=== PATIENT | female | born 1935 | race Caucasian/White ===

== ENCOUNTER 2016-07-17 12:21 | Inpatient (IN) | payer MEDICARE, OTHER, MEDICAID ==
[2016-07-17] MEDS ORDERED: Sodium Chloride 0.9% 1,000 ML IV ONE (12:25)
[2016-07-17 12:34] VITALS: BP 86/61
[2016-07-17 12:36] LABS: BE(B) 12.4 mEq/L (-3.0-3.0); HCO3 34.3 mEq/L (20.0-26.0); pH 7.52 (7.35-7.45)
[2016-07-17 12:37] LABS: ABG SOURCE Arterial; ALLEN TEST YES; FIO2 21
--- NOTE | 2016-07-17 12:50 | ED Physician Chart ---
Chief Complaint/HPI - Patient Information Date Seen:: 07/17/16 Time Seen:: 12:35 Chief Complaint:: CHEST CONGESTION History of Present Illness:: THIS IS A CHRONICALLY ILL 81 YO FEMALE SENT FROM THE ALF FOR EVALUATION AND TREATMENT. SHE HAS BEEN HAVING TROUBLE WITH SOB, COUGHING, CHEST CONGESTION FOR SEVERAL DAYS. Allergies:: Allergies Allergy/AdvReac Type Severity Reaction Status Date / Time Penicillins [PCN] Allergy Verified 07/17/16 12:28 aspirin AdvReac Verified 07/17/16 12:28 aztreonam [From Azactam] AdvReac Verified 07/17/16 12:28 iodine AdvReac Verified 07/17/16 12:28 Vitals:: Vital Signs - 8 hr 07/17/16 12:34 BP 86/61 Historian:: Patient, EMS, Medical Records Review:: Nurse's Note Reviewed, Transfer documents Reviewed Review of Systems - Review of Systems General/Constitutional: No fever, No chills, No weight loss, No weakness, No diaphoresis, No edema, No loss of appetite Skin: No skin lesions, Rash, No bruising Head: No headache, No light-headedness Eyes: No loss of vision, No pain, No diplopia ENT: No earache, No nasal drainage, No sore throat, No tinnitus Neck: No neck pain, No swelling, No thyromegaly, No stiffness, No mass noted Cardio Vascular: No chest pain, No palpitations, No PND, No orthopnea, No edema Pulmonary: SOB, Cough, Sputum, No wheezing GI: No nausea, No vomiting, No diarrhea, No pain, No melena, No hematochezia, No constipation, No hematemesis G/U: No dysuria, No frequency, No hematuria Musculoskeletal: No bone or joint pain, No back pain, No muscle pain Endocrine: No polyuria, No polydipsia Psychiatric: No prior psych history, No depression, No anxiety, No suicidal ideation Hematopoietic: No bruising, No lymphadenopathy Allergic/Immuno: No urticaria, No angioedema Neurological: No syncope, No focal symptoms, No weakness, No paresthesia, No headache, No seizure, No dizziness, No confusion, No vertigo Past Medical History - Past Medical History Obtainable: Yes Past Medical History: CAD, CHF, Asthma/COPD, Thyroid disorder, Dementia, Other ( GALLSTONES, HIATAL HERNIA, MULTIPLE COMPRESSION FRACTURES) Family History: None Social History: Non Smoker, No Alcohol, No Drug Use, Care Facility Surgical History: None Psychiatricy History: Dementia Medication: Reviewed Family Medical History - Family Member Mother History Unknown: Yes Ethnicity: Non- Living Status: Physical Exam - Physical Examination General/Constitutional: Awake, Well-developed, well-nourished, Alert, No distress, GCS 15, Non-toxic appearing, Ambulatory Head: Atraumatic Eyes: Lids, conjuctiva normal, PERRL, EOMI Skin: Nl inspection, No skin lesions, No ecchymosis, Well hydrated, No lymphadenopathy Other Skin comments:: RASH ON ARMS AND LEGS ENMT: External ears, nose nl, Nasal exam nl, Lips, teeth, gums nl Neck: Nontender, Full ROM w/o pain, No JVD, No nuchal rigidity, No bruit, No mass, No stridor Respiratory: Nl effort/Exclusion Other Respiratory comments:: THERE ARE DECREASED BREATH SOUNDS BILATERAL AND THERE ARE RHONCHI HEARD WITH A DECREASE IN THE EXCURSION OF THE DIAPHRAMS. Cardio Vascular: RRR, No murmur, gallop, rubs, NL S1 S2 GI: No tenderness/rebounding/guarding, No organomegaly, Normal BS's, Nondistended, No mass/bruits, No McBurney tenderness Other GI comments:: THERE IS A VENTRAL HERNIA NOTED OF EXAMINATION. : No CVA tenderness Extremities: No tenderness or effusion, Full ROM, normal strength in all extremities, No edema, Normal digits & nails Other Extremities comments:: THERE IS MUSCLE WASTING OF ALL FOUR EXTREMITIES WITH DEGENERATIVE JOINT DISEASE. Neuro/Psych: Alert/oriented, DTR's symmetric, Normal sensory exam, Normal motor strength, Judgement/insight normal, Mood normal, Normal gait, No focal deficits Misc: normal gait, Normal back, No paraspinal tenderness Labs/Radiology/EKG Results - Lab Results Results: Laboratory Tests 07/17/16 12:18 Specimen Source Arterial Sample Site Right Radial pH 7.52 H pCO2 45.0 pO2 47.0 L* HCO3 34.3 H Base Excess 12.4 H O2 Saturation 87.0 L Von Test YES Vent Rate NA Inspired O2 21 Tidal Volume NA PEEP NA Pressure (ins/psv/peep) NA Critical Value E.GARCIA - Radiology Results Results: CHEST X-RAY = ENLARGED HEART, DECREASE LUNG VOLUMES. - EKG Interpretations EKG Time:: 12:37 Rhythm: SINUS Hardin: RIGHT Rate: 83 ED Septic Shock - . Is Septic Shock (SBP<90, OR Lactate>4 mmol\L) present?: No - <6hrs of presentation: Vital Signs: Vital Signs - 8 hr 07/17/16 12:34 BP 86/61 Reassessment (Disposition) - Reassessment Reassessment Condition:: Unchanged - Diagnosis Diagnosis:: CHF ELEVATED TROPONIN - Patient Disposition Discharge/Transfer:: Acute Care w/in this hosp Admitted to:: Telemetry
[2016-07-17 12:51] LABS: % BASOPHILS 0.1 % (0.0-2.0); % EOSINOPHILS 1.2 % (0.0-5.0); % LYMPHOCYTES 13.5 % (20.0-50.0); % MONOCYTES 6.1 % (2.0-10.0); % NEUTROPHILS 79.1 % (40.0-80.0); HEMATOCRIT 39.7 % (35.0-45.0); HEMOGLOBIN 13.2 gm/dL (11.7-16.1); MEAN CELL VOLUME 87.5 fl (81-100); MEAN CORPUSCULAR HGB CONC 33.2 pg (28.0-36.0); MEAN PLATELET VOLUME 6.6 fl; NEUTROPHILE ABSOLUTE 7.1 Th/cmm (1.8-8.0); PLATELET COUNT 202 Th/cmm (150-400); RED BLOOD COUNT 4.54 Mil/cmm (3.80-5.20); RED CELL DISTRIBUTION WIDTH 14.9 % (11.5-20.0); WHITE BLOOD COUNT 8.9 Th/cmm (4.8-10.8)
[2016-07-17 13:00] LABS: INR 1.07 (0.5-1.4); PROTHROMBIN TIME (TEST) 11.1 SECONDS (9.5-11.5)
[2016-07-17 13:06] LABS: ALB/GLOB RATIO 0.8 (1.0-1.8); ALKALINE PHOSPHATASE 55 U/L (34-104); ANION GAP 10.6 (7.0-16.0); BILIRUBIN,TOTAL 0.5 mg/dL (0.3-1.0); BUN - UREA NITROGEN 17 mg/dL (7-25); BUN/CREATININE RATIO 24.3; CALCIUM SERUM 9.3 mg/dL (8.6-10.3); CARBON DIOXIDE 30.7 mEq/L (21.0-31.0); CHLORIDE 101 mEq/L (98-107); CHOLESTEROL 129 mg/dL (<200); CREATININE - SERUM 0.7 mg/dL (0.6-1.2); GLUCOSE 145 mg/dL (70-105); POTASSIUM SERUM 3.3 mEq/L (3.5-5.1); SGOT 21 U/L (13-39); SGPT/ALT 9 U/L (7-52); SODIUM SERUM 139 mEq/L (136-145); TRIGLYCERIDES 78 mg/dL (<150)
--- NOTE | 2016-07-17 13:48 | Diagnostic Imaging Report ---
Portable chest x-ray HISTORY: Shortness of breath The heart is enlarged. Allowing for a poor inspiration, no acute focal pulmonary processes. No evidence of pleural fluid. IMPRESSION: 1. Allowing for a poor inspiration, no focal pulmonary processes 2. Cardiomegaly
--- NOTE | 2016-07-17 16:29 | Admit Criteria Form ---
Admit Criteria Forms - Admit Criteria Diagnosis: HEART FAILURE: COMMON COMPLICATIONS Clinical Indications for Inpatient Care (Place 'X' for any and all applicable criteria): Ongoing inpatient care may be indicated for heart failure with ANY ONE of the following (1)(2)(3)(4)(5): [ ]I. Ongoing need for care for primary condition requiring frequent therapy adjustments because of changes in cardiac function (eg, drug dosage changes for drugs that are renally metabolized) [ ]II. New-onset heart failure [ ]III. Heart failure with decreased urine output not responsive to attempts to optimize volume status [ ]IV. Acute cardiac ischemia causing or associated with failure [X]V. Complications of heart failure, including ANY ONE of the following: [ ]a) Pericardial effusion [ ]b) Symptomatic pleural effusion [X]c) O2 saturation <90% or PO2 < 60 mm Hg (8.0 kPa) on room air or require baseline supplemental O2 [ ]d) Tachypnea [X]e) Dyspnea [ ]f) Syncope [ ]g) Change in mental status [ ]h) Acute renal insufficiency that is severe (reduction of more than 50% in estimated glomerular filtration rate from baseline) or progressive reduction of more than 25% in estimated glomerular filtration rate from baseline, with creatinine continuing to rise) [ ]i) Hemodynamic instability [ ]j) Anasarca [ ]k) Clinically significant metabolic abnormalities due to heart failure (eg, new-onset metabolic acidosis) Extended stay beyond goal length of stay for primary condition may be needed until ALL of the following are present(1)(3): [ ]a) Stable and effective diuretic regimen established (or patient on stable dialysis regimen if in chronic renal failure) [ ]b) Breathing comfortably at rest [ ]c) Saturation of arterial oxygen greater than 90% or at acceptable baseline [ ]d) Pulmonary edema absent or improved [ ]e) Hemodynamic stability [ ]f) Volume status acceptable on oral medication [ ]g) Peripheral or sacral edema absent or improved [ ]h) Renal function stable and manageable at a lower level of care [ ]i) Complications (eg, pleural effusion) resolved or manageable at a lower level of care [ ]j) Patient or caregiver has received written discharge instructions or educational material addressing activity level, diet, discharge medications, follow-up appointment, weight monitoring, and what to do if symptoms worsen The original [employer] content created by Bob Eastman has been revised. The portions of the content which have been revised are identified through the use of italic text or in bold, and Bob Eastman has neither reviewed nor approved the modified material.All other unmodified content is copyright Bob Eastman. Please see references footnoted in the original Bob Eastman edition 2016 Admit Criteria Met?: Yes
[2016-07-17] MEDS ORDERED: D5-0.45NS 1,000 ML IV SCH (16:30)
[2016-07-17] MEDS: Albuterol Nebulizer 2.5mg/3mL IH SCH (19:06)
[2016-07-17] MEDS: Ipratropium Neb 0.5 mg/2.5 mL UD IH SCH (19:07)
[2016-07-17] MEDS ORDERED: Ipratropium Neb 0.5 mg/2.5 mL UD HHN PRN (20:04)
[2016-07-17] MEDS ORDERED: Budesonide 0.5 Mg/2 mL Ud HHN ONE (20:10)
[2016-07-17] MEDS: guaiFENesin 200 MG/10 ML UDC PO PRN (20:58)
[2016-07-17] MEDS: methylPREDNISolone SS 40 mg Vial IVP SCH (20:59)
[2016-07-17] MEDS: D5-0.45NS 1,000 ML IV SCH (21:21)
[2016-07-18 02:00] LABS: TROP I 0.14 ng/mL (0.01-0.05)
[2016-07-18] MEDS: methylPREDNISolone SS 40 mg Vial IVP SCH ×3 (05:11→21:30)
[2016-07-18] MEDS: Albuterol/Ipratropium Neb 3 ML AERS HHN PRN (05:27)
[2016-07-18] MEDS: Ipratropium Neb 0.5 mg/2.5 mL UD IH SCH ×5 (05:28→19:16)
[2016-07-18] MEDS: Albuterol Nebulizer 2.5mg/3mL IH SCH (07:25)
[2016-07-18] MEDS: Budesonide 0.5 Mg/2 mL Ud HHN SCH ×2 (07:28→19:16)
[2016-07-18] MEDS ORDERED: Potassium Chloride 20 mEq ER Tab PO ONE (07:39)
[2016-07-18] MEDS: Ferrous Sulfate 300 MG/5 ML UDC PO SCH ×4 (08:46→21:30)
[2016-07-18] MEDS: Levothyroxine 0.05 Mg Tab PO SCH (08:47)
--- NOTE | 2016-07-18 08:56 | Diagnostic Imaging Report ---
Portable chest x-ray HISTORY: Shortness of breath Compared with prior exam taken earlier in the day (1257 hours), there is a poor inspiration. The heart is enlarged. There is accentuation of the interstitial lung markings. A degree of congestive heart failure cannot be excluded. Density noted in the left retrocardiac region suggesting a probable hiatal hernia. IMPRESSION: 1. Cardiomegaly. Mild degree of congestive heart failure cannot be excluded. Clinical correlation is needed. 2. Retrocardiac density suggesting a hiatal hernia. If necessary, a CT scan would confirm.
--- NOTE | 2016-07-18 09:08 | History & Physical ---
CHIEF COMPLAINT: [facility] is a [facility] resident was sent to the Emergency Room due to chest congestion and coughing for 3 days. HISTORY OF PRESENT ILLNESS: This is an 81-year-old female from a [facility] who was sent in to the Emergency Room for evaluation due to coughing and chest congestion for 3 days. REVIEW OF SYSTEMS: GENERAL: No weight loss. No fever. No weakness. HEAD: Denies any headache. EYES: Denies any eye pain. EARS: Denies any earache. NOSE: Denies any nasal drainage. NECK: Denies any neck pain or swelling. CARDIOVASCULAR: No chest pain, no palpitation. PULMONARY: Positive with cough, shortness of breath and wheezing. GASTROINTESTINAL: No constipation. Denies diarrhea. Denies any abdominal pain. GENITOURINARY: Denies dysuria. MUSCULOSKELETAL: Denies any joint pain or muscle pain. PAST MEDICAL HISTORY: Includes CHF, asthma, hypothyroidism, dementia, coronary artery disease. FAMILY HISTORY: Unremarkable. SOCIAL HISTORY: The patient [facility] prior to arrival to Emergency Room. PAST SURGICAL HISTORY: Unremarkable. PHYSICAL EXAMINATION: GENERAL: Awake, well developed, well nourished female patient, alert, in no distress. HEENT: Head is atraumatic, normocephalic. NOSE: Bilateral pupils equally round and reactive to light and accommodation. SKIN: Fragile. NECK: Supple. No JVD. CARDIOVASCULAR: S1 and S2 heard without murmur. LUNGS: Positive cough and bilateral ____ notable wheezing. GASTROINTESTINAL: Abdomen is soft and nontender without guarding. MUSCULOSKELETAL: No edema. No weakness noted. ASSESSMENT: 1. Hypoxemia. 2. Congestive heart failure. 3. Elevated troponin. 4. Dementia. 5. Hypertension. 6. Osteoarthritis. 7. Chronic obstructive pulmonary disease. PLAN: We will admit the patient to telemetry unit. We will check the patient's troponin level every 8 hours and also we will repeat a chest x-ray in the morning and also we will give the patient some Solu-Medrol and breathing treatment, some bronchodilators and we will have the family engagement specialist and size changer to follow up with the patient. JOB# [id number]
[2016-07-18 09:55] LABS: % BASOPHILS 3.6 % (0.0-2.0); % EOSINOPHILS 0.1 % (0.0-5.0); % MONOCYTES 1.6 % (2.0-10.0); % NEUTROPHILS 85.7 % (40.0-80.0); HEMOGLOBIN 12.8 gm/dL (11.7-16.1); MEAN CELL VOLUME 86.8 fl (81-100); MEAN CORPUSCULAR HEMOGLOBIN 29.3 pg (27.0-31.0); MEAN CORPUSCULAR HGB CONC 33.8 pg (28.0-36.0); MEAN PLATELET VOLUME 7.4 fl; NEUTROPHILE ABSOLUTE 8.9 Th/cmm (1.8-8.0); PLATELET COUNT 178 Th/cmm (150-400); RED BLOOD COUNT 4.37 Mil/cmm (3.80-5.20); RED CELL DISTRIBUTION WIDTH 14.5 % (11.5-20.0); WHITE BLOOD COUNT 10.4 Th/cmm (4.8-10.8)
[2016-07-18 10:32] LABS: ALB/GLOB RATIO 0.8 (1.0-1.8); ALKALINE PHOSPHATASE 57 U/L (34-104); ANION GAP 13.3 (7.0-16.0); BILIRUBIN,TOTAL 0.5 mg/dL (0.3-1.0); BUN - UREA NITROGEN 17 mg/dL (7-25); BUN/CREATININE RATIO 28.3; CALCIUM SERUM 9.4 mg/dL (8.6-10.3); CARBON DIOXIDE 25.5 mEq/L (21.0-31.0); CHLORIDE 104 mEq/L (98-107); CREATININE - SERUM 0.6 mg/dL (0.6-1.2); GLUCOSE 292 mg/dL (70-105); MAGNESIUM 2.1 mg/dL (1.9-2.7); SGOT 19 U/L (13-39); SGPT/ALT 9 U/L (7-52); SODIUM SERUM 140 mEq/L (136-145)
--- NOTE | 2016-07-18 10:34 | Diagnostic Imaging Report ---
Portable chest x-ray HISTORY: Shortness of breath Compared with prior exam of July 17, 2016, there is a very poor inspiration. The heart appears enlarged. A large retrocardiac air density is seen consistent with a large hiatal hernia. A poor inspiration is results in accentuation of the interstitial lung markings. Allowing for this factor, no definite focal processes are seen. IMPRESSION: 1. Very poor inspiration resulting in accentuation of the interstitial lung markings. Allowing for this factor, no definite focal processes are seen 2. Cardiomegaly 3. Large retrocardiac air density consistent with a large hiatal hernia.
[2016-07-18 10:43] LABS: POTASSIUM SERUM 2.8 mEq/L (3.5-5.1)
[2016-07-18] MEDS: Albuterol Nebulizer 2.5mg/3mL HHN SCH ×3 (10:54→19:16)
[2016-07-18] MEDS: KCL 20mEq/100mL Premix 20 MEQ/100 ML PIGGYBACK IV SCH ×2 (14:04→16:48)
[2016-07-18] MEDS: D5-0.45NS 1,000 ML IV SCH (23:13)
[2016-07-19] MEDS: methylPREDNISolone SS 40 mg Vial IVP SCH ×3 (05:48→21:43)
[2016-07-19] MEDS: Albuterol Nebulizer 2.5mg/3mL HHN SCH ×4 (07:17→19:05)
[2016-07-19] MEDS: Ipratropium Neb 0.5 mg/2.5 mL UD IH SCH ×4 (07:17→19:05)
[2016-07-19] MEDS: Budesonide 0.5 Mg/2 mL Ud HHN SCH ×2 (07:18→19:05)
--- NOTE | 2016-07-19 08:51 | Consultation ---
REFERRING PHYSICIAN: Dr. Moises Ryder. Thank you very much Dr. Ryder for this consultation. HISTORY OF PRESENT ILLNESS: This is an 81-year-old female who was admitted with respiratory distress, shortness of breath and cough and was diagnosed with possible pneumonia, admitted for further treatment and management. The patient apparently was getting ambulated by PT and started feeling dizzy, was found to have rounds of VTAC, transferred to ICU for further evaluation. The patient feels better she said. She denies any chest pain, still having some cough and congestion. The patient had recent CVA she said about 2 months ago or less, right-sided weakness. SOCIAL HISTORY: Denies smoking, drinking or drug use. REVIEW OF SYSTEMS: GENERAL: Some weakness and fatigue. CARDIOVASCULAR: No chest pain and some palpitation earlier. GASTROINTESTINAL: No nausea or vomiting. PHYSICAL EXAMINATION: GENERAL: Awake and alert, not in acute distress. VITAL SIGNS: Temperature 97.8, pulse 96, respirations 21, blood pressure 98/54 and saturation 96%. HEENT: Head atraumatic and normocephalic. Eyes: Pupils reactive to light and accommodation. Ears, nose and throat normal. NECK: Supple. No JVD. CHEST: There is rhonchi and rales in bases. HEART: Regular rate and rhythm. ABDOMEN: Soft. EXTREMITIES: No edema. LABORATORY DATA: WBC is 10.4, hemoglobin is 12.8, hematocrit is 38.0 and platelets 178. Sodium is 140, potassium 2.8, BUN is 17, creatinine 0.6 and troponin is 0.14, down to 0.08. CHEST X-RAY: Cardiomegaly with some pulmonary congestion, possible infiltrates to the right lower lobe. IMPRESSION: 1. This is an 81-year-old female with possibly pneumonia, right lower lobe. 2. Some underlying congestive heart failure ____. 3. Coronary artery disease with some rounds of ventricular tachycardia. 4. Recent cerebrovascular accident. PLAN: 1. IV antibiotics. 2. Nebulizer treatment. 3. Pulmonary toilet. 4. Cardiac evaluation and I will follow up the patient with you. Thank you very much for this consultation. JOB# [id number]
[2016-07-19] MEDS: Levothyroxine 0.05 Mg Tab PO SCH (09:13)
[2016-07-19] MEDS: Ferrous Sulfate 300 MG/5 ML UDC PO SCH ×3 (09:14→21:24)
--- NOTE | 2016-07-19 09:19 | Diagnostic Imaging Report ---
Portable chest x-ray HISTORY: Shortness of breath The heart is enlarged. There is a poor inspiration. The does appear to be degree of pulmonary vascular redistribution consistent with marginal cardiac decompensation. No margarette pulmonary edema. There is a large retrocardiac air density consistent with a large hiatal hernia. IMPRESSION: 1. Little change from July 18, 2016. Persistent cardiomegaly with suggestion of a marginal degree of cardiac decompensation without margarette pulmonary edema. 2. Findings consistent with a large retrocardiac hiatal hernia
[2016-07-19 09:41] LABS: HEMATOCRIT 39.2 % (35.0-45.0); MEAN CELL VOLUME 85.8 fl (81-100); MEAN CORPUSCULAR HEMOGLOBIN 28.4 pg (27.0-31.0); MEAN CORPUSCULAR HGB CONC 33.1 pg (28.0-36.0); MEAN PLATELET VOLUME 6.6 fl; PLATELET COUNT 184 Th/cmm (150-400); RED BLOOD COUNT 4.56 Mil/cmm (3.80-5.20); RED CELL DISTRIBUTION WIDTH 14.3 % (11.5-20.0)
[2016-07-19 09:43] LABS: WHITE BLOOD COUNT 12.1 Th/cmm (4.8-10.8)
[2016-07-19] MEDS ORDERED: Diltiazem 5 mg/mL 5mL Vial IVP STA (10:07)
[2016-07-19] MEDS ORDERED: KCL 20mEq/100mL Premix 20 MEQ/100 ML PIGGYBACK IV ONE (10:15)
[2016-07-19 10:27] LABS: ANION GAP 5.8 (7.0-16.0); BUN - UREA NITROGEN 15 mg/dL (7-25); CALCIUM SERUM 9.7 mg/dL (8.6-10.3); CARBON DIOXIDE 29.9 mEq/L (21.0-31.0); CHLORIDE 106 mEq/L (98-107); CREATININE - SERUM 0.5 mg/dL (0.6-1.2); GLUCOSE 125 mg/dL (70-105); POTASSIUM SERUM 3.7 mEq/L (3.5-5.1); SODIUM SERUM 138 mEq/L (136-145)
[2016-07-19 10:28] LABS: BAND NEUTROPHILE 1 % (0-10); NEUTROPHILS 91 % (40-80); PLATELET ESTIMATE ADEQUATE (NORMAL); PLATELET MORPHOLOGY NORMAL (NORMAL); TOTAL CELLS COUNTED 99
[2016-07-19] MEDS: KCL 20mEq/100mL Premix 20 MEQ/100 ML PIGGYBACK IV SCH ×2 (11:29→13:40)
[2016-07-19] MEDS ORDERED: Diltiazem 5 mg/mL 5mL Vial IVP PRN (14:06)
--- NOTE | 2016-07-19 17:06 | Cardiology ---
M-MODE ECHOCARDIOGRAM: Mitral valve, anterior leaflets of mitral valve shows normal excursion, EF velocity. Posterior leaflet of mitral valve shows normal excursion. Left ventricular posterior wall shows increased thickness, normal excursion. Interventricular septum shows increased thickness, normal excursion, hypertrophy of the left ventricle, ejection fraction 70%, left atrium enlarged. Aortic root shows normal dimension, normal excursion of aortic leaflets. CONCLUSION: Hypertrophy of the left ventricle, left atrial enlargement, ejection fraction 70%. 2D ECHO: Long axis view showed normal sized left ventricle with hypertrophy of the left ventricle. Left atrium enlarged. Aortic root shows normal dimension, normal excursion of aortic leaflets. Short axis view of mitral valve normal. Short axis view of aortic valve normal. Apical four chamber view showed normal sized left ventricle with hypertrophy of the left ventricle. Left atrium enlarged. Right ventricular cavity, right atrium normal, no pericardial effusion. CONCLUSION: Hypertrophy of the left ventricle, left atrial enlargement, ejection fraction 70%. Doppler study shows mild mitral regurgitation, tricuspid regurgitation, aortic regurgitation. Right ventricular systolic pressure 45 mmHg with mild pulmonary hypertension. CONCLUSION: Hypertrophy of the left ventricle. Left atrial enlargement, mild pulmonary hypertension, ejection fraction 70%. There is mild mitral regurgitation, tricuspid regurgitation, aortic regurgitation. [facility]# [id number]
[2016-07-19] MEDS: guaiFENesin 200 MG/10 ML UDC PO PRN (22:47)
--- NOTE | 2016-07-19 22:52 | Consultation ---
The patient of Dr. Ryder. HISTORY AND PHYSICAL: This 81-year-old female patient who was brought to the Emergency Room complaining of shortness of breath, cough, ____ expectoration, fever, and chills. The patient was found to have acute exacerbation of COPD and pneumonia, and the patient is admitted. During the hospital stay, the patient developed nonsustained ventricular tachycardia and the patient was transferred to ICU. The patient also has slightly elevated troponin level. PAST MEDICAL HISTORY: The patient has a history of dementia, COPD, congestive heart failure, diastolic dysfunction, hypothyroid, dementia, osteoarthritis, osteoporosis. FAMILY HISTORY: Unremarkable. SOCIAL HISTORY: No history of smoking, alcohol abuse. ALLERGIES: No known allergies. PHYSICAL EXAMINATION: VITAL SIGNS: Blood pressure 130/80, pulse 88, respirations 28. HEAD: Normocephalic. No lumps or bumps. EYES: Pupils are equal, reactive to light. Fundi show AV nicking, sclerae white, conjunctivae pink. NECK: Carotid 2+. Normal upstroke. JVD 10 cm above the sternal angle. Thyroid not palpable. Lymph node is not palpable. CHEST: Shows increased AP diameter. No kyphosis, scoliosis. LUNGS: Bilateral rales. Decreased breath sounds in both the bases. HEART: PMI sixth intercostal space with lateral to midclavicular line. S1, S2, S3, S4, systolic murmur, grade 2/6, lower left sternal border without radiation. ABDOMEN: Soft. Liver, spleen not palpable. No organomegaly. Bowel sounds are active. NEUROLOGIC: Unremarkable. EXTREMITIES: Peripheral pulses 1+, pedal edema 1+. CLINICAL IMPRESSION: Nonsustained ventricular tachycardia, congestive heart failure, diastolic dysfunction, non-ST elevation myocardial infarction, chronic obstructive pulmonary disease, acute respiratory failure, pneumonia, hypothyroid, dementia, osteoarthritis, osteoporosis, hypokalemia. PLAN: The patient to have an echocardiogram, start the patient on amiodarone, potassium supplement, and get serum magnesium level. The patient's condition was discussed with daughter at bedside. JOB# [id number]
[2016-07-20] MEDS: methylPREDNISolone SS 40 mg Vial IVP SCH ×2 (05:00→13:14)
[2016-07-20] MEDS: Albuterol/Ipratropium Neb 3 ML AERS HHN PRN (06:48)
[2016-07-20] MEDS: Budesonide 0.5 Mg/2 mL Ud HHN SCH ×2 (06:49→19:39)
[2016-07-20] MEDS ORDERED: Fleet Enema 135 mL RC PRN (06:59)
[2016-07-20 08:28] LABS: HEMOGLOBIN 13.2 gm/dL (11.7-16.1); MEAN CORPUSCULAR HEMOGLOBIN 30.1 pg (27.0-31.0); MEAN CORPUSCULAR HGB CONC 34.7 pg (28.0-36.0); MEAN PLATELET VOLUME 6.6 fl; PLATELET COUNT 203 Th/cmm (150-400); RED BLOOD COUNT 4.36 Mil/cmm (3.80-5.20); RED CELL DISTRIBUTION WIDTH 14.6 % (11.5-20.0)
[2016-07-20 08:33] LABS: WHITE BLOOD COUNT 9.4 Th/cmm (4.8-10.8)
[2016-07-20 08:49] LABS: ALB/GLOB RATIO 0.8 (1.0-1.8); ALKALINE PHOSPHATASE 48 U/L (34-104); ANION GAP 9.6 (7.0-16.0); BILIRUBIN,TOTAL 0.5 mg/dL (0.3-1.0); BUN - UREA NITROGEN 14 mg/dL (7-25); CALCIUM SERUM 9.4 mg/dL (8.6-10.3); CARBON DIOXIDE 27.1 mEq/L (21.0-31.0); CHLORIDE 105 mEq/L (98-107); CREATININE - SERUM 0.5 mg/dL (0.6-1.2); GLUCOSE 158 mg/dL (70-105); POTASSIUM SERUM 3.7 mEq/L (3.5-5.1); SGOT 20 U/L (13-39); SGPT/ALT 9 U/L (7-52); SODIUM SERUM 138 mEq/L (136-145)
[2016-07-20] MEDS: Lactulose 10 Gm/15 mL 30mL UDC PO SCH (09:10)
[2016-07-20 09:24] LABS: BAND NEUTROPHILE 2 % (0-10); NEUTROPHILS 91 % (40-80); PLATELET ESTIMATE ADEQUATE (NORMAL); PLATELET MORPHOLOGY NORMAL (NORMAL); TOTAL CELLS COUNTED 100
[2016-07-20] MEDS: Ferrous Sulfate 300 MG/5 ML UDC PO SCH ×2 (09:47→13:15)
[2016-07-20] MEDS: Levothyroxine 0.05 Mg Tab PO SCH (09:52)
--- NOTE | 2016-07-20 10:06 | Diagnostic Imaging Report ---
CHEST X-RAY: AP view INDICATION: CHF COMPARISON: Chest x-ray 07/19/2016 FINDINGS: A large retrocardiac hiatal hernia is noted. No focal consolidation or evidence of margarette CHF. A skinfold is seen along the left hemithorax. Cardiomegaly is noted. Note the patient is rotated. Distended loops of bowel are seen along the upper abdomen. IMPRESSION: Large retrocardiac hiatal hernia. If indicated, CT would provide additional detail and assessment. No radiographic evidence of margarette CHF. No focal consolidation identified. Cardiomegaly. Distended loops of bowel along the upper abdomen.
--- NOTE | 2016-07-20 11:05 | Diagnostic Imaging Report ---
KUB History: Abdominal distention Comparison: None Findings: There is massive generalized distention of bowel loops. There is significant stool seen throughout the colon greatest on the right side. Nonspecific 1 similar metallic density seen projecting along the right hemipelvis. Bilateral hip arthroplasties are noted. Advanced degenerative changes of the spine are noted. IMPRESSION: Massive generalized distended loops of bowel which may be due to generalized distal obstructive process or significant stool throughout the colon which is seen primarily on the right side. Clinical correlation and follow-up is recommended.
[2016-07-20] MEDS: Albuterol Nebulizer 2.5mg/3mL HHN SCH ×4 (11:55→19:39)
--- NOTE | 2016-07-20 15:21 | Internal Medicine Prog Note ---
Internal Medicine Subjective - Subjective Service Date: 07/20/16 Patient seen and examined:: without staff Patient is:: awake, verbal Patient Complaints of:: other (no v/d) Per staff patient is:: no episodes of fall, eating well Internal Medicine Objective - Results Result Diagrams: 07/20/16 08:15 07/20/16 08:15 Recent Labs: Laboratory Last Values WBC 9.4 Th/cmm (4.8-10.8) D 07/20/16 08:15 RBC 4.36 Mil/cmm (3.80-5.20) 07/20/16 08:15 Hgb 13.2 gm/dL (11.7-16.1) 07/20/16 08:15 Hct 38.0 % (35.0-45.0) 07/20/16 08:15 MCV 87.0 fl (81-100) 07/20/16 08:15 MCH 30.1 pg (27.0-31.0) 07/20/16 08:15 MCHC Differential 34.7 pg (28.0-36.0) 07/20/16 08:15 RDW 14.6 % (11.5-20.0) 07/20/16 08:15 Plt Count 203 Th/cmm (150-400) 07/20/16 08:15 MPV 6.6 fl 07/20/16 08:15 Neutrophils % 85.7 % (40.0-80.0) H 07/18/16 09:25 Band Neutrophils % 2 % (0-10) 07/20/16 08:15 Lymphocytes % 9.0 % (20.0-50.0) L 07/18/16 09:25 Monocytes % 1.6 % (2.0-10.0) L 07/18/16 09:25 Eosinophils % 0.1 % (0.0-5.0) 07/18/16 09:25 Basophils % 3.6 % (0.0-2.0) H 07/18/16 09:25 Neutrophils (Manual) 91 % (40-80) H 07/20/16 08:15 Lymphocytes 6 % (20-50) L 07/20/16 08:15 Monocytes 1 % (2-10) L 07/20/16 08:15 Platelet Estimate ADEQUATE (NORMAL) 07/20/16 08:15 Platelet Morphology NORMAL (NORMAL) 07/20/16 08:15 RBC Morph Micro Appear NORMAL (NORMAL) 07/20/16 08:15 PT 11.1 SECONDS (9.5-11.5) 07/17/16 12:42 INR 1.07 (0.5-1.4) 07/17/16 12:42 PTT (Actin FS) 31.0 SECONDS (26.0-38.0) 07/17/16 12:42 Specimen Source Arterial 07/17/16 12:18 Sample Site Right Radial 07/17/16 12:18 pH 7.52 (7.35-7.45) H 07/17/16 12:18 pCO2 45.0 mmHg (35.0-45.0) 07/17/16 12:18 pO2 47.0 mmHg (80.0-100.0) L* 07/17/16 12:18 HCO3 34.3 mEq/L (20.0-26.0) H 07/17/16 12:18 Base Excess 12.4 mEq/L (-3.0-3.0) H 07/17/16 12:18 O2 Saturation 87.0 % (92.0-100.0) L 07/17/16 12:18 Von Test YES 07/17/16 12:18 Vent Rate NA 07/17/16 12:18 Inspired O2 21 07/17/16 12:18 Tidal Volume NA 07/17/16 12:18 PEEP NA 07/17/16 12:18 Pressure (ins/psv/peep) NA 07/17/16 12:18 Critical Value E.GARCIA 07/17/16 12:18 Sodium 138 mEq/L (136-145) 07/20/16 08:15 Potassium 3.7 mEq/L (3.5-5.1) 07/20/16 08:15 Chloride 105 mEq/L (98-107) 07/20/16 08:15 Carbon Dioxide 27.1 mEq/L (21.0-31.0) 07/20/16 08:15 Anion Gap 9.6 (7.0-16.0) 07/20/16 08:15 BUN 14 mg/dL (7-25) 07/20/16 08:15 Creatinine 0.5 mg/dL (0.6-1.2) L 07/20/16 08:15 Est GFR ( Amer) TNP 07/20/16 08:15 Est GFR (Non-Af Amer) TNP 07/20/16 08:15 BUN/Creatinine Ratio 28.0 07/20/16 08:15 Glucose 158 mg/dL (70-105) H 07/20/16 08:15 Hemoglobin A1c % 5.1 % (4.0-6.0) 07/18/16 01:22 Calcium 9.4 mg/dL (8.6-10.3) 07/20/16 08:15 Magnesium 2.1 mg/dL (1.9-2.7) 07/18/16 09:25 Total Bilirubin 0.5 mg/dL (0.3-1.0) 07/20/16 08:15 AST 20 U/L (13-39) 07/20/16 08:15 ALT 9 U/L (7-52) 07/20/16 08:15 Alkaline Phosphatase 48 U/L (34-104) 07/20/16 08:15 Ammonia 49 umol/L (16-53) 07/18/16 09:25 Troponin I 0.08 ng/mL (0.01-0.05) H* D 07/18/16 09:25 B-Natriuretic Peptide 695.0 pg/mL (5.0-100.0) H 07/19/16 08:27 Total Protein 6.8 gm/dL (6.0-8.3) 07/20/16 08:15 Albumin 3.0 gm/dL (3.7-5.3) L 07/20/16 08:15 Globulin 3.8 gm/dL 07/20/16 08:15 Albumin/Globulin Ratio 0.8 (1.0-1.8) L 07/20/16 08:15 Triglycerides 78 mg/dL (<150) 07/17/16 12:42 Cholesterol 129 mg/dL (<200) 07/17/16 12:42 LDL Cholesterol Direct 81 mg/dL (75-193) 07/17/16 12:42 HDL Cholesterol 39 mg/dL (23-92) 07/17/16 12:42 TSH 2.99 uIU/ml (0.34-5.60) 07/17/16 12:42 RPR NONREACTIVE (NONREACTIVE) 07/17/16 12:42 - Physical Exam Vitals and I&O: Vital Signs Temp 98.0 F 07/20/16 12:00 Pulse 122 07/20/16 14:00 Resp 20 07/20/16 14:00 BP 126/82 07/20/16 14:00 Pulse Ox 96 07/20/16 14:00 Intake & Output 07/19/16 07/20/16 07/20/16 18:59 06:59 18:59 Intake Total 350 50 390 Balance 350 50 390 Intake: Intake, IV Amount 50 Cefepime 1 gm In Dextrose 50 5% 50 ml @ 100 mls/hr IV Q12H [facility] Rx#:[id number] Oral 350 390 Other: # Voids 3 Active Medications: Current Medications Acetaminophen (Tylenol) 650 mg PO Q4HR PRN PRN Reason: Pain or Fever >101 Stop: 09/15/16 16:17 Albuterol Sulfate (Albuterol 2.5mg/3ml Neb Ud) 2.5 mg HHN QIDRT [facility] Stop: 09/15/16 16:59 Last Admin: 07/20/16 11:55 Dose: 2.5 mg Albuterol/Ipratropium (Duoneb Neb) 3 ml HHN Q2H PRN PRN Reason: Wheezing Stop: 09/15/16 20:49 Last Admin: 07/20/16 06:48 Dose: 3 ml Amiodarone HCl (Cordarone) 200 mg PO DAILY [facility] Stop: 09/17/16 08:59 Last Admin: 07/20/16 09:46 Dose: 200 mg Budesonide (Pulmicort) 0.5 mg HHN BIDRT [facility] Stop: 09/16/16 06:59 Last Admin: 07/20/16 06:49 Dose: 0.5 mg Diltiazem HCl (Cardizem) 20 mg IVP Q4H PRN PRN Reason: HR Greater than 130 per min Stop: 09/17/16 14:05 Last Admin: 07/20/16 02:27 Dose: 20 mg Famotidine (Pepcid) 20 mg PO DAILY [facility] Stop: 09/16/16 08:59 Last Admin: 07/20/16 09:45 Dose: 20 mg Ferrous Sulfate (Iron) 220 mg PO TID [facility] Stop: 09/15/16 20:59 Last Admin: 07/20/16 13:15 Dose: 220 mg Folic Acid (Folate) 1 mg PO DAILY [facility] Stop: 09/16/16 08:59 Last Admin: 07/20/16 09:52 Dose: 1 mg Gabapentin (Neurontin) 300 mg PO BID [facility] Stop: 09/15/16 16:59 Last Admin: 07/20/16 09:45 Dose: 300 mg Guaifenesin (Robitussin) 200 mg PO Q4HR PRN PRN Reason: Cough or Congestion Stop: 09/15/16 16:17 Last Admin: 07/19/16 22:47 Dose: 200 mg Heparin Sodium (Porcine) (Heparin) 5,000 units SUBQ Q12HR [facility] Stop: 09/15/16 20:59 Last Admin: 07/20/16 09:47 Dose: Not Given Cefepime HCl 1 gm/ Dextrose 50 mls @ 100 mls/hr IV Q12H [facility] Stop: 09/15/16 16:29 Last Infusion: 07/20/16 05:30 Dose: Infused Dextrose/Sodium Chloride (D5-0.45ns) 1,000 mls @ 60 mls/hr IV .[id number] [facility] Stop: 09/15/16 16:29 Last Admin: 07/18/16 23:13 Dose: 60 mls/hr Ipratropium [place] (Atrovent Neb 0.5mg/2.5ml) 0.5 mg IH QID [facility] Stop: 09/15/16 16:59 Last Admin: 07/19/16 19:05 Dose: 0.5 mg Lactulose (Cephulac) 20 gm PO DAILY [facility] Stop: 09/18/16 08:59 Last Admin: 07/20/16 09:10 Dose: 20 gm Levetiracetam (Keppra) 1,000 mg PO Q12H [facility] Stop: 09/15/16 16:14 Last Admin: 07/19/16 17:36 Dose: 1,000 mg Levothyroxine Sodium (Synthroid) 0.05 mg PO QAM [facility] Stop: 09/16/16 08:59 Last Admin: 07/20/16 09:52 Dose: 0.05 mg Methylprednisolone Sodium Succinate (Solu-Medrol) 80 mg IVP Q8HR [facility] Stop: 09/18/16 20:59 Ondansetron HCl (Zofran) 4 mg IV Q8H PRN PRN Reason: Nausea / Vomiting Stop: 09/15/16 16:17 Sodium Phosphate (Fleet Enema) 135 ml RC DAILY PRN PRN Reason: Constipation Stop: 09/18/16 06:58 Thiamine HCl (Vitamin B1) 100 mg PO DAILY [facility] Stop: 09/16/16 08:59 Last Admin: 07/20/16 09:46 Dose: 100 mg Zolpidem Tartrate (Ambien) 10 mg PO HS PRN PRN Reason: Insomnia Stop: 09/15/16 16:17 Last Admin: 07/20/16 01:10 Dose: 10 mg General: other (awake, alert, didnt sleep last nite) HEENT: NC/AT, PERRLA, EOMI, anicteric sclerae, throat clear Neck: Supple, No JVD, +2 carotid pulse wo bruit Lungs: CTAB Cardiovascular: RRR, Normal S1, Normal S2, tachy (on and off tachy , AFIB) Abdomen: soft non-tender Extremities: other (no clubbing, no edema, no cyanosis) Internal Medicine Assmt/Plan - Assessment Assessment: NSTEMI HYPOXEMIOA CHF ELEVATED TROPONIN DEMENTIA HTN OSTEOARTHRITIS - Plan Plan: CPM RESTORIL 30 FOR SLEEP AT BED TIME
[2016-07-20] MEDS ORDERED: Lactulose 10 Gm/15 mL 30mL UDC PO ONE (18:24)
[2016-07-20] MEDS ORDERED: Diltiazem 5 mg/mL 25mL Vial IV ONE (18:50)
[2016-07-20] MEDS: Ipratropium Neb 0.5 mg/2.5 mL UD IH SCH (19:38)
--- NOTE | 2016-07-20 22:59 | Consultation ---
IDENTIFYING INFORMATION: The patient is an 81-year-old female. REASON FOR CONSULTATION AND HISTORY OF PRESENT ILLNESS: The patient has been anxious. The patient reports that she cannot sleep, she cannot eat, she had a lot of anxiety ____ started having palpitation. The patient, otherwise, report that she had minimized her depression. She reports only anxiety. She denies any intent to harm herself or anybody. She denies any auditory or visual hallucination or paranoia. PAST PSYCHIATRIC HISTORY: The patient denies prior psychiatric treatment, never tried to harm herself, never had been on any psychotropic medication. MEDICAL HISTORY: Deferred to the medical ____. The patient has exacerbated COPD, she is currently in ICU. FAMILY AND SOCIAL HISTORY: The patient reports she is . She had 2 children, a boy and a girl. She lives with her son in [place]____. The patient reports no family psychiatric disorder, she has high school education. She is from [facility]. Denies substance abuse problem. Denies family history of psychotic disorder, suicide or substance abuse. MENTAL STATUS EXAMINATION: The patient was alert. She was cooperative. She has hard time with her breathing and speech, she knew this is 2016. She was not sure of the exact date. She knew her birthday. She has fair eye contact. She was coherent. Her long-term memory is intact, short-term memory is intact, not sure of the date or ages of her children or how long she has been . No suicidal ideation, no homicidal ideation. No paranoia. Her insight and judgment seems to be fair. IMPRESSION: AXIS I: Generalized anxiety disorder and dementia. MEDICAL DIAGNOSES: Deferred to the medical doctor. I would recommend to use Ativan as needed, start the patient on Remeron 7.5 mg at bedtime. I will defer to the medical doctor to initiate those medication as she feel comfortable considering her medical condition. Thank you very much for allowing me to participate in the care of this most interesting lady. JOB# [id number]
[2016-07-21 06:19] LABS: FOLIC ACID >20.0 ng/mL (>3.0)
[2016-07-21] MEDS: D5-0.45NS 1,000 ML IV SCH ×3 (07:00→23:38)
[2016-07-21] MEDS: Ipratropium Neb 0.5 mg/2.5 mL UD IH SCH ×4 (08:10→19:06)
[2016-07-21] MEDS: Albuterol Nebulizer 2.5mg/3mL HHN SCH ×4 (08:10→19:06)
[2016-07-21] MEDS: Budesonide 0.5 Mg/2 mL Ud HHN SCH ×2 (08:11→19:06)
[2016-07-21] MEDS: Lactulose 10 Gm/15 mL 30mL UDC PO SCH (10:43)
[2016-07-21] MEDS: Levothyroxine 0.05 Mg Tab PO SCH (10:43)
[2016-07-21] MEDS: Ferrous Sulfate 300 MG/5 ML UDC PO SCH ×4 (10:44→20:43)
--- NOTE | 2016-07-21 11:17 | Diagnostic Imaging Report ---
CT abdomen and pelvis without intravenous contrast Indication: Abdominal pain, rule out obstruction Comparison: None, Technique: Axial images were obtained from the lung bases to the bilateral proximal femurs without IV contrast. Coronal reconstructions were made. total DLP: 486, CTDI11.4 FINDINGS: There is a very large hiatal hernia containing most of the stomach with oral contrast seen in this region. There also appears to be part of the large bowel within the hiatal hernia. Bibasal consolidation is seen right greater than left. Multiple markedly distended loops of bowel are seen primarily large bowel loops with copious amount of stool noted. No evidence of free abdominal air. There is associated mass effect upon the adjacent organs. No focal hepatic lesions. Gallstones are noted. No focal splenic lesions. Pancreatic gland calcifications are seen likely due to old inflammatory process. No focal adrenal lesions. No evidence of hydronephrosis or nephrolithiasis. There are Surgical clips seen in the pelvis. Streak artifact from bilateral hip arthroplasties limit evaluation of the pelvis. There appear to be old fractures of the right inferior pubic ramus. Advanced degenerative changes are seen with extensive multilevel spinal compression fractures most pronounced at T12 with 3-4 mm posterior retropulsion. Diffuse atherosclerotic vascular disease is noted. Anasarca is noted. IMPRESSION: Massive hiatal hernia containing almost all the stomach. There appears to be partial herniation of the colon in this region also. Severely distended loops of bowel greatest within large bowel loops with gas and air-fluid levels and copious stool. Findings may be due to severe constipation and a colonic ileus. Noted this limited evaluation of small bowel loops. If indicated, short-term follow-up exam small bowel follow-through procedure may also be obtained. Cholelithiasis. Extensive degenerative changes spine with multilevel compression deformities most pronounced at T12 with 3 to 4 mm retropulsion seen at this level. Atherosclerotic vascular disease. Bibasal consolidative changes right greater than left Anasarca.
[2016-07-21 12:23] LABS: HEMATOCRIT 39.9 % (35.0-45.0); HEMOGLOBIN 13.3 gm/dL (11.7-16.1)
[2016-07-21 12:29] LABS: INR 1.1 (0.5-1.4); PROTHROMBIN TIME (TEST) 11.5 SECONDS (9.5-11.5)
[2016-07-21] MEDS: Diltiazem 30 mg Tab PO SCH (17:05)
--- NOTE | 2016-07-21 20:36 | Progress Notes ---
SUBJECTIVE: The patient was seen in the room lying on the bed. According to the nurses, the patient refused morning blood draw and the patient is currently on Cardizem drip due to sinus tachycardia. Currently, heart rate is sinus tach between noon 1:10 to 1:15. OBJECTIVE: GENERAL: The patient is awake and alert, otherwise no signs of distress. HEENT: Head is atraumatic, normocephalic. NECK: Supple. No JVD. EYES: Bilateral conjunctivae are clear from injection. CARDIOVASCULAR: S1 and S2 heard without murmur. PULMONARY: Mild inspiratory wheezing noted on 2 liters of nasal cannula. GASTROINTESTINAL: Soft and nontender. Abdomen is distended. No guarding. MUSCULOSKELETAL: No edema, no clubbing noted. ASSESSMENT: 1. Hypoxemia. 2. Congestive heart failure. 3. Hypertension. 4. Dementia. 5. Osteoarthritis. 6. Chronic obstructive pulmonary disease. 7. Bowel obstruction versus constipation. PLAN: We will continue Cardizem drip until heart rate is controlled. We will have a CT scan of the abdomen without contrast to rule out bowel obstruction versus constipation. We will continue IV antibiotics and we will repeat the chest x-ray in the morning. JOB# [id number]
[2016-07-22] MEDS: Diltiazem 30 mg Tab PO SCH ×5 (00:03→23:52)
--- NOTE | 2016-07-22 02:06 | Consultation ---
GASTROENTEROLOGY CONSULTATION REQUESTING PHYSICIAN: Dr. Marvin Robles. REASON FOR CONSULTATION: Fecal impaction. HISTORY OF PRESENT ILLNESS: This is an 81-year-old female with history of possible old stroke, dementia, coronary artery disease and COPD, admitted for shortness of breath. She was noted to have on CT imaging fecal impaction and large hiatal hernia and she also was noted to be in supraventricular tachycardia and diagnosed with non-ST elevation myocardial infarction. We were asked to evaluate the patient for her fecal impaction. The patient has [id number] abdominal distention. PAST MEDICAL HISTORY: As above. MEDICATIONS: Here are Tylenol, albuterol , DuoNeb nebulizer, amiodarone, Pulmicort, cefepime, diltiazem, Pepcid, iron, folic acid, Neurontin, Robitussin, lactulose 20 grams orally daily, Keppra, Synthroid, Solu-Medrol, Zofran, Fleet enema p.r.n., Restoril, Coumadin, thiamine and Ambien. ALLERGIES: To penicillin, aspirin, aztreonam, chicken derivatives, egg and iodine. SOCIAL HISTORY: No recent tobacco, alcohol or drugs. FAMILY HISTORY: Noncontributory. REVIEW OF SYSTEMS: A comprehensive 12-point review of system was collected and was only positive for those signs and symptoms present in history of present illness. PHYSICAL EXAMINATION: VITAL SIGNS: Temperature of 97.9, blood pressure is 123/90, pulse of 106, respirations 24 and O2 sat is 96%. GENERAL: The patient is well-developed, chronically ill-appearing elderly female, in no acute distress. Alert and oriented x 4. HEENT: Sclerae nonicteric. Oropharynx is clear. CARDIOVASCULAR: Regular rate and rhythm, except for tachycardia. LUNGS: With occasional rhonchi at the bases and wheezing. ABDOMEN: Soft, moderate distention and nontender. EXTREMITIES: No clubbing, cyanosis or edema. RECTAL: Reveals normal sphincter tone with no obvious fecal impaction or rectal masses. LABORATORY DATA AND IMAGING: WBC of 9.4, hemoglobin 13.2 and platelet count of 203. INR is 1.1. Sodium 138 and creatinine 0.5. Liver enzymes normal B12 and folate normal. CT of the abdomen and pelvis done without contrast shows extensive degenerative changes of the spine with multilevel compression deformities, atherosclerotic vascular disease, anasarca, bibasilar consolidations in the right greater than left. Also, massive hiatal hernia containing almost all the stomach, severely distended loops of bowel, greatest within the large bowel with air fluid levels and copious stools. Findings may be due to severe constipation and/or colonic ileus, also cholelithiasis. IMPRESSION: 1. Fecal impaction/ileus with negative rectal examination. 2. Large hiatal hernia and gallstones for CT imaging. 3. Abdominal distention. 4. Coronary artery disease and recent Non-ST elevation myocardial infarction and supraventricular tachycardia. 5. Dementia. 6. Chronic obstructive pulmonary disease. 7. Leukocytosis. RECOMMENDATIONS: 1. Continue laxatives per mouth and per rectum. 2. Clear liquid diet. 3. Further care as per Cardiology and Pulmonology. 4. High risk for endoscopic intervention including endoscopy or colonoscopy, would defer for now. Thank you, Dr. Marvin Robles and Dr. Moises Ryder for involving us in the care of your patient. Any further questions, please call us. JOB# [id number]
[2016-07-22 05:13] LABS: INR 1.34 (0.5-1.4); PROTHROMBIN TIME (TEST) 14.1 SECONDS (9.5-11.5)
[2016-07-22] MEDS: Albuterol Nebulizer 2.5mg/3mL HHN SCH ×4 (08:46→18:55)
[2016-07-22] MEDS: Ipratropium Neb 0.5 mg/2.5 mL UD IH SCH ×4 (08:47→18:55)
[2016-07-22] MEDS: Budesonide 0.5 Mg/2 mL Ud HHN SCH ×2 (08:47→18:56)
--- NOTE | 2016-07-22 08:58 | Diagnostic Imaging Report ---
Portable chest x-ray HISTORY: Shortness of breath Compared with prior exam of July 20, 2016, there is a very poor inspiration. No focal pulmonary processes are seen. The heart is enlarged. Findings consistent with a large retrocardiac hiatal hernia noted. IMPRESSION: 1. Allowing for a poor inspiration, no focal pulmonary processes 2. Cardiomegaly 3. Findings consistent with a large retrocardiac hiatal hernia
[2016-07-22] MEDS: Ferrous Sulfate 300 MG/5 ML UDC PO SCH ×3 (09:12→20:29)
[2016-07-22] MEDS: Lactulose 10 Gm/15 mL 30mL UDC PO SCH (09:25)
[2016-07-22] MEDS: Levothyroxine 0.05 Mg Tab PO SCH (09:25)
--- NOTE | 2016-07-22 14:02 | Diagnostic Imaging Report ---
KUB abdominal film HISTORY: Pain, constipation Exam of the prior exam of July 20, 2016, there remains markedly distended/dilated air-filled large bowel. Large amount of stool noted in the region of the sigmoid and ascending colon. Findings consistent with changes of constipation. IMPRESSION: 1. Little change since the exam of July 20, 2016 with markedly distended stool-filled large bowel.
--- NOTE | 2016-07-22 16:31 | Internal Medicine Prog Note ---
Internal Medicine Subjective - Subjective Service Date: 07/22/16 Patient seen and examined:: with staff, chart reviewed, other (seen with Dr Duarte. Patient has a very distended globular belly, and has SOB . CT shows large hiatal hernia. we explained her about the surgery to fix hernia) Internal Medicine Objective - Results Result Diagrams: 07/21/16 11:55 07/20/16 08:15 Recent Labs: Laboratory Last Values WBC 9.4 Th/cmm (4.8-10.8) D 07/20/16 08:15 RBC 4.36 Mil/cmm (3.80-5.20) 07/20/16 08:15 Hgb 13.3 gm/dL (11.7-16.1) 07/21/16 11:55 Hct 39.9 % (35.0-45.0) 07/21/16 11:55 MCV 87.0 fl (81-100) 07/20/16 08:15 MCH 30.1 pg (27.0-31.0) 07/20/16 08:15 MCHC Differential 34.7 pg (28.0-36.0) 07/20/16 08:15 RDW 14.6 % (11.5-20.0) 07/20/16 08:15 Plt Count 203 Th/cmm (150-400) 07/21/16 11:55 MPV 6.6 fl 07/20/16 08:15 Neutrophils % 85.7 % (40.0-80.0) H 07/18/16 09:25 Band Neutrophils % 2 % (0-10) 07/20/16 08:15 Lymphocytes % 9.0 % (20.0-50.0) L 07/18/16 09:25 Monocytes % 1.6 % (2.0-10.0) L 07/18/16 09:25 Eosinophils % 0.1 % (0.0-5.0) 07/18/16 09:25 Basophils % 3.6 % (0.0-2.0) H 07/18/16 09:25 Neutrophils (Manual) 91 % (40-80) H 07/20/16 08:15 Lymphocytes 6 % (20-50) L 07/20/16 08:15 Monocytes 1 % (2-10) L 07/20/16 08:15 Platelet Estimate ADEQUATE (NORMAL) 07/20/16 08:15 Platelet Morphology NORMAL (NORMAL) 07/20/16 08:15 RBC Morph Micro Appear NORMAL (NORMAL) 07/20/16 08:15 PT 14.1 SECONDS (9.5-11.5) H 07/22/16 04:29 INR 1.34 (0.5-1.4) 07/22/16 04:29 PTT (Actin FS) 31.0 SECONDS (26.0-38.0) 07/17/16 12:42 Specimen Source Arterial 07/17/16 12:18 Sample Site Right Radial 07/17/16 12:18 pH 7.52 (7.35-7.45) H 07/17/16 12:18 pCO2 45.0 mmHg (35.0-45.0) 07/17/16 12:18 pO2 47.0 mmHg (80.0-100.0) L* 07/17/16 12:18 HCO3 34.3 mEq/L (20.0-26.0) H 07/17/16 12:18 Base Excess 12.4 mEq/L (-3.0-3.0) H 07/17/16 12:18 O2 Saturation 87.0 % (92.0-100.0) L 07/17/16 12:18 Von Test YES 07/17/16 12:18 Vent Rate NA 07/17/16 12:18 Inspired O2 21 07/17/16 12:18 Tidal Volume NA 07/17/16 12:18 PEEP NA 07/17/16 12:18 Pressure (ins/psv/peep) NA 07/17/16 12:18 Critical Value E.GARCIA 07/17/16 12:18 Sodium 138 mEq/L (136-145) 07/20/16 08:15 Potassium 3.7 mEq/L (3.5-5.1) 07/20/16 08:15 Chloride 105 mEq/L (98-107) 07/20/16 08:15 Carbon Dioxide 27.1 mEq/L (21.0-31.0) 07/20/16 08:15 Anion Gap 9.6 (7.0-16.0) 07/20/16 08:15 BUN 14 mg/dL (7-25) 07/20/16 08:15 Creatinine 0.5 mg/dL (0.6-1.2) L 07/20/16 08:15 Est GFR ( Amer) TNP 07/20/16 08:15 Est GFR (Non-Af Amer) TNP 07/20/16 08:15 BUN/Creatinine Ratio 28.0 07/20/16 08:15 Glucose 158 mg/dL (70-105) H 07/20/16 08:15 Hemoglobin A1c % 5.1 % (4.0-6.0) 07/18/16 01:22 Calcium 9.4 mg/dL (8.6-10.3) 07/20/16 08:15 Magnesium 2.1 mg/dL (1.9-2.7) 07/18/16 09:25 Total Bilirubin 0.5 mg/dL (0.3-1.0) 07/20/16 08:15 AST 20 U/L (13-39) 07/20/16 08:15 ALT 9 U/L (7-52) 07/20/16 08:15 Alkaline Phosphatase 48 U/L (34-104) 07/20/16 08:15 Ammonia 49 umol/L (16-53) 07/18/16 09:25 Troponin I 0.08 ng/mL (0.01-0.05) H* D 07/18/16 09:25 B-Natriuretic Peptide 695.0 pg/mL (5.0-100.0) H 07/19/16 08:27 Total Protein 6.8 gm/dL (6.0-8.3) 07/20/16 08:15 Albumin 3.0 gm/dL (3.7-5.3) L 07/20/16 08:15 Globulin 3.8 gm/dL 07/20/16 08:15 Albumin/Globulin Ratio 0.8 (1.0-1.8) L 07/20/16 08:15 Triglycerides 78 mg/dL (<150) 07/17/16 12:42 Cholesterol 129 mg/dL (<200) 07/17/16 12:42 LDL Cholesterol Direct 81 mg/dL (75-193) 07/17/16 12:42 HDL Cholesterol 39 mg/dL (23-92) 07/17/16 12:42 Vitamin B12 377 pg/mL (211-946) 07/18/16 09:25 Folic Acid >20.0 ng/mL (>3.0) 07/18/16 09:25 TSH 2.99 uIU/ml (0.34-5.60) 07/17/16 12:42 RPR NONREACTIVE (NONREACTIVE) 07/17/16 12:42 - Physical Exam Vitals and I&O: Vital Signs Temp 97.5 F 07/22/16 12:00 Pulse 93 07/22/16 14:27 Resp 24 07/22/16 14:27 BP 119/76 07/22/16 14:00 Pulse Ox 100 07/22/16 14:27 Intake & Output 07/21/16 07/22/16 07/22/16 18:59 06:59 18:59 Intake Total 50 1708 Balance 50 1708 Intake: Intake, IV Amount 50 1048 Cefepime 1 gm In Dextrose 50 50 5% 50 ml @ 100 mls/hr IV Q12H [facility] Rx#:[id number] D5-0.45NS 1,000 ml @ 60 998 mls/hr IV .[id number] [facility] Rx #:[id number] Oral 660 Other: # Voids 3 # Bowel Movements 0 Stool Characteristics Liquid Brown Active Medications: Current Medications Acetaminophen (Tylenol) 650 mg PO Q4HR PRN PRN Reason: Pain or Fever >101 Stop: 09/15/16 16:17 Albuterol Sulfate (Albuterol 2.5mg/3ml Neb Ud) 2.5 mg HHN QIDRT [facility] Stop: 09/15/16 16:59 Last Admin: 07/22/16 14:26 Dose: 2.5 mg Albuterol/Ipratropium (Duoneb Neb) 3 ml HHN Q2H PRN PRN Reason: Wheezing Stop: 09/15/16 20:49 Last Admin: 07/20/16 06:48 Dose: 3 ml Amiodarone HCl (Cordarone) 200 mg PO DAILY [facility] Stop: 09/17/16 08:59 Last Admin: 07/22/16 09:11 Dose: 200 mg Bisacodyl (Dulcolax 10 Mg Supp) 10 mg RC DAILY [facility] Stop: 07/23/16 09:01 Last Admin: 07/22/16 09:12 Dose: 10 mg Budesonide (Pulmicort) 0.5 mg HHN BIDRT [facility] Stop: 09/16/16 06:59 Last Admin: 07/22/16 08:47 Dose: 0.5 mg Diltiazem HCl (Cardizem) 60 mg PO Q6HR [facility] Stop: 09/19/16 17:59 Last Admin: 07/22/16 13:34 Dose: 60 mg Famotidine (Pepcid) 20 mg PO DAILY [facility] Stop: 09/16/16 08:59 Last Admin: 07/22/16 09:11 Dose: 20 mg Ferrous Sulfate (Iron) 220 mg PO TID [facility] Stop: 09/15/16 20:59 Last Admin: 07/22/16 13:35 Dose: 220 mg Folic Acid (Folate) 1 mg PO DAILY [facility] Stop: 09/16/16 08:59 Last Admin: 07/22/16 09:12 Dose: 1 mg Gabapentin (Neurontin) 300 mg PO BID [facility] Stop: 09/15/16 16:59 Last Admin: 07/22/16 09:12 Dose: 300 mg Guaifenesin (Robitussin) 200 mg PO Q4HR PRN PRN Reason: Cough or Congestion Stop: 09/15/16 16:17 Last Admin: 07/19/16 22:47 Dose: 200 mg Cefepime HCl 1 gm/ Dextrose 50 mls @ 100 mls/hr IV Q12H [facility] Stop: 09/15/16 16:29 Last Infusion: 07/22/16 05:12 Dose: Infused Dextrose/Sodium Chloride (D5-0.45ns) 1,000 mls @ 60 mls/hr IV .[id number] [facility] Stop: 09/15/16 16:29 Last Admin: 07/21/16 23:38 Dose: 60 mls/hr Ipratropium [place] (Atrovent Neb 0.5mg/2.5ml) 0.5 mg IH QID [facility] Stop: 09/15/16 16:59 Last Admin: 07/22/16 14:27 Dose: 0.5 mg Lactulose (Cephulac) 20 gm PO DAILY [facility] Stop: 09/18/16 08:59 Last Admin: 07/22/16 09:25 Dose: 20 gm Levetiracetam (Keppra) 1,000 mg PO Q12H [facility] Stop: 09/15/16 16:14 Last Admin: 07/22/16 04:19 Dose: 1,000 mg Levothyroxine Sodium (Synthroid) 0.05 mg PO QAM [facility] Stop: 09/16/16 08:59 Last Admin: 07/22/16 09:25 Dose: 0.05 mg Methylprednisolone Sodium Succinate (Solu-Medrol) 80 mg IVP Q8HR [facility] Stop: 09/18/16 20:59 Last Admin: 07/22/16 13:35 Dose: 80 mg Ondansetron HCl (Zofran) 4 mg IV Q8H PRN PRN Reason: Nausea / Vomiting Stop: 09/15/16 16:17 Sodium Phosphate (Fleet Enema) 135 ml RC DAILY PRN PRN Reason: Constipation Stop: 09/18/16 06:58 Temazepam (Restoril) 30 mg PO HS PRN; Protocol PRN Reason: Insomnia Stop: 09/18/16 15:29 Last Admin: 07/21/16 21:24 Dose: 30 mg Thiamine HCl (Vitamin B1) 100 mg PO DAILY [facility] Stop: 09/16/16 08:59 Last Admin: 07/22/16 09:12 Dose: 100 mg Warfarin Sodium (Coumadin Per Pharmacy) 1 ea [facility] PRN PRN; Protocol PRN Reason: RX MONITORING Stop: 09/18/16 18:44 Zolpidem Tartrate (Ambien) 10 mg PO HS PRN PRN Reason: Insomnia Stop: 09/15/16 16:17 Last Admin: 07/20/16 01:10 Dose: 10 mg General: alert, obese HEENT: NC/AT, PERRLA Neck: Supple, No JVD Lungs: other (SOB) Cardiovascular: RRR, Normal S1, Normal S2 Abdomen: soft non-tender, distended, other (reviewed CT of the abdomen and US of the abdomen) Extremities: excoriation, rash, other (rash on the left leg and thigh), no edema Neurological: no change, alert Internal Medicine Assmt/Plan - Assessment Assessment: NSTEMI HYPOXEMIOA CHF ELEVATED TROPONIN DEMENTIA HTN OSTEOARTHRITIS Large Hiatal hernia with bowel loops strangled fecal impaction rash on the left thigh and leg - Plan Plan: CPM RESTORIL 30 FOR SLEEP AT BED TIME Possible surgery to repair Hiatal Hernia Nutritional Asmnt/Malnutr-PDOC - Dietary Evaluation Malnutrition Findings (Please click <Entered> for more info): Nutritional Asmnt/Malnutrition Start: 07/21/16 15: 24 Text: Status: Complete Freq: Document 07/21/16 15:25 GSUN (Rec: 07/21/16 15:53 GSUN [email or web address]) Nutritional Asmnt/Malnutrition Patient General Information Nutritional Screening Moderate Risk Screening Diagnosis Hypoxemia, CHF, elevated troponin, dementia, HTN, COPD Pertinent Medical Hx/Surgical Hx CHF, asthma, hypothyroidism, dementia, CAD Subjective Information 07/[address]: massive hiatal hernia almost all of stomach, severely distended bowel loops, cholelithiasis. RN noted large liquid brown BM this morning. Pt ordered clear liquid to start this dinner. Spoke to pt this morning with RN at bedside assisting with meals, no difficulties observed, pt has few missing teeth. Avg PO intake 25-75% of meals since adm. Pt was orientated, slightly slow in response, able to confirm food preferences with RD, stated likes for fish and beef, dislikes for chicken, egg, turkey, pork. FNS notified. CBW bedscale 131.9lb, pt report UBW 115lb, EMR 120lb. Current Diet Order/ Nutrition Support Clear liquid Pertinent Medications Dulcolax, D5, Pepcid, Iron, Folate, Synthroid, Solu-Medrol , Zofran, Fleet Enema, Vitamin B1, Coumadin Pertinent Labs 07/18: A1c 5.1 07/20: glucose 158H Nutritional Hx/Data Height 1.63 m Height (Calculated Centimeters) 162.6 Current Weight (lbs) 54.431 kg Weight (Calculated Kilograms) 54.4 Weight (Calculated Grams) 40250.1 Usual body Weight (lbs) 115 [place] Body Weight 120 Weight Status Approriate GI Symptoms GI Symptoms Diarrhea Food Allergies No Cultural/Ethnic/Jewish Belief RD noted pt's food preferences , not allergies, refer to subejctive above. Skin Integrity/Comment: Chilo 13. Wound care 07/21: skin intact, some discolorations noted. Estimated Nutritional Goals BEE in Kcals: Using Current wt Calories/Kcals/Kg CBW 54.4kg Kcals Calculated 1360-1632kcal (25-30kcal/kg) Protein: Using Current wt Protein Calculated 54g (1g/kg) Fluid: ml 1360-1632ml (1ml/kcal) Nutritional Problem 1. Problem Problem Altered GI function related to Etiology 07/[address]: massive hiatal hernia almost all of stomach, severely distended bowel loops, cholelithiasis aeb Signs/Symptoms: currently clear liquid diet, diarrhea, distended abdominal, suboptimla PO intake Intervention/Recommendation Comments 1. Continue clear liquid diet. Diet advanmcent per MD. Recommend resume diet [id number] mech soft chopped. Expected Outcomes/Goals Expected Outcomes/Goals 1. PO intake to meet at least 50% of estimated nutritional needs.
--- NOTE | 2016-07-22 16:46 | General Progress Note ---
Subjective - Review of Systems Service Date: 07/22/16 Events since last encounter: CT abdomen and chest: large hiatal hernia with stomach and colon in chest labs ok on Prednisone 80 q 8 hrs PE: abdomen is markedly distended, not tender Discussed options with daughter and son son to come and see patient and call me for decision Objective - Results Result Diagrams: 07/21/16 11:55 07/20/16 08:15 Recent Labs: Laboratory Last Values WBC 9.4 Th/cmm (4.8-10.8) D 07/20/16 08:15 RBC 4.36 Mil/cmm (3.80-5.20) 07/20/16 08:15 Hgb 13.3 gm/dL (11.7-16.1) 07/21/16 11:55 Hct 39.9 % (35.0-45.0) 07/21/16 11:55 MCV 87.0 fl (81-100) 07/20/16 08:15 MCH 30.1 pg (27.0-31.0) 07/20/16 08:15 MCHC Differential 34.7 pg (28.0-36.0) 07/20/16 08:15 RDW 14.6 % (11.5-20.0) 07/20/16 08:15 Plt Count 203 Th/cmm (150-400) 07/21/16 11:55 MPV 6.6 fl 07/20/16 08:15 Neutrophils % 85.7 % (40.0-80.0) H 07/18/16 09:25 Band Neutrophils % 2 % (0-10) 07/20/16 08:15 Lymphocytes % 9.0 % (20.0-50.0) L 07/18/16 09:25 Monocytes % 1.6 % (2.0-10.0) L 07/18/16 09:25 Eosinophils % 0.1 % (0.0-5.0) 07/18/16 09:25 Basophils % 3.6 % (0.0-2.0) H 07/18/16 09:25 Neutrophils (Manual) 91 % (40-80) H 07/20/16 08:15 Lymphocytes 6 % (20-50) L 07/20/16 08:15 Monocytes 1 % (2-10) L 07/20/16 08:15 Platelet Estimate ADEQUATE (NORMAL) 07/20/16 08:15 Platelet Morphology NORMAL (NORMAL) 07/20/16 08:15 RBC Morph Micro Appear NORMAL (NORMAL) 07/20/16 08:15 PT 14.1 SECONDS (9.5-11.5) H 07/22/16 04:29 INR 1.34 (0.5-1.4) 07/22/16 04:29 PTT (Actin FS) 31.0 SECONDS (26.0-38.0) 07/17/16 12:42 Specimen Source Arterial 07/17/16 12:18 Sample Site Right Radial 07/17/16 12:18 pH 7.52 (7.35-7.45) H 07/17/16 12:18 pCO2 45.0 mmHg (35.0-45.0) 07/17/16 12:18 pO2 47.0 mmHg (80.0-100.0) L* 07/17/16 12:18 HCO3 34.3 mEq/L (20.0-26.0) H 07/17/16 12:18 Base Excess 12.4 mEq/L (-3.0-3.0) H 07/17/16 12:18 O2 Saturation 87.0 % (92.0-100.0) L 07/17/16 12:18 Von Test YES 07/17/16 12:18 Vent Rate NA 07/17/16 12:18 Inspired O2 21 07/17/16 12:18 Tidal Volume NA 07/17/16 12:18 PEEP NA 07/17/16 12:18 Pressure (ins/psv/peep) NA 07/17/16 12:18 Critical Value E.GARCIA 07/17/16 12:18 Sodium 138 mEq/L (136-145) 07/20/16 08:15 Potassium 3.7 mEq/L (3.5-5.1) 07/20/16 08:15 Chloride 105 mEq/L (98-107) 07/20/16 08:15 Carbon Dioxide 27.1 mEq/L (21.0-31.0) 07/20/16 08:15 Anion Gap 9.6 (7.0-16.0) 07/20/16 08:15 BUN 14 mg/dL (7-25) 07/20/16 08:15 Creatinine 0.5 mg/dL (0.6-1.2) L 07/20/16 08:15 Est GFR ( Amer) TNP 07/20/16 08:15 Est GFR (Non-Af Amer) TNP 07/20/16 08:15 BUN/Creatinine Ratio 28.0 07/20/16 08:15 Glucose 158 mg/dL (70-105) H 07/20/16 08:15 Hemoglobin A1c % 5.1 % (4.0-6.0) 07/18/16 01:22 Calcium 9.4 mg/dL (8.6-10.3) 07/20/16 08:15 Magnesium 2.1 mg/dL (1.9-2.7) 07/18/16 09:25 Total Bilirubin 0.5 mg/dL (0.3-1.0) 07/20/16 08:15 AST 20 U/L (13-39) 07/20/16 08:15 ALT 9 U/L (7-52) 07/20/16 08:15 Alkaline Phosphatase 48 U/L (34-104) 07/20/16 08:15 Ammonia 49 umol/L (16-53) 07/18/16 09:25 Troponin I 0.08 ng/mL (0.01-0.05) H* D 07/18/16 09:25 B-Natriuretic Peptide 695.0 pg/mL (5.0-100.0) H 07/19/16 08:27 Total Protein 6.8 gm/dL (6.0-8.3) 07/20/16 08:15 Albumin 3.0 gm/dL (3.7-5.3) L 07/20/16 08:15 Globulin 3.8 gm/dL 07/20/16 08:15 Albumin/Globulin Ratio 0.8 (1.0-1.8) L 07/20/16 08:15 Triglycerides 78 mg/dL (<150) 07/17/16 12:42 Cholesterol 129 mg/dL (<200) 07/17/16 12:42 LDL Cholesterol Direct 81 mg/dL (75-193) 07/17/16 12:42 HDL Cholesterol 39 mg/dL (23-92) 07/17/16 12:42 Vitamin B12 377 pg/mL (211-946) 07/18/16 09:25 Folic Acid >20.0 ng/mL (>3.0) 07/18/16 09:25 TSH 2.99 uIU/ml (0.34-5.60) 07/17/16 12:42 RPR NONREACTIVE (NONREACTIVE) 07/17/16 12:42 - Physical Exam Vitals and I&O: Vital Signs Temp 97.5 F 07/22/16 12:00 Pulse 93 07/22/16 14:27 Resp 24 07/22/16 14:27 BP 119/76 07/22/16 14:00 Pulse Ox 100 07/22/16 14:27 Intake & Output 07/21/16 07/22/16 07/22/16 18:59 06:59 18:59 Intake Total 50 1708 Balance 50 1708 Intake: Intake, IV Amount 50 1048 Cefepime 1 gm In Dextrose 50 50 5% 50 ml @ 100 mls/hr IV Q12H [facility] Rx#:[id number] D5-0.45NS 1,000 ml @ 60 998 mls/hr IV .[id number] [facility] Rx #:[id number] Oral 660 Other: # Voids 3 # Bowel Movements 0 Stool Characteristics Liquid Brown Active Medications: Current Medications Acetaminophen (Tylenol) 650 mg PO Q4HR PRN PRN Reason: Pain or Fever >101 Stop: 09/15/16 16:17 Albuterol Sulfate (Albuterol 2.5mg/3ml Neb Ud) 2.5 mg HHN QIDRT [facility] Stop: 09/15/16 16:59 Last Admin: 07/22/16 14:26 Dose: 2.5 mg Albuterol/Ipratropium (Duoneb Neb) 3 ml HHN Q2H PRN PRN Reason: Wheezing Stop: 09/15/16 20:49 Last Admin: 07/20/16 06:48 Dose: 3 ml Amiodarone HCl (Cordarone) 200 mg PO DAILY [facility] Stop: 09/17/16 08:59 Last Admin: 07/22/16 09:11 Dose: 200 mg Bisacodyl (Dulcolax 10 Mg Supp) 10 mg RC DAILY [facility] Stop: 07/23/16 09:01 Last Admin: 07/22/16 09:12 Dose: 10 mg Budesonide (Pulmicort) 0.5 mg HHN BIDRT [facility] Stop: 09/16/16 06:59 Last Admin: 07/22/16 08:47 Dose: 0.5 mg Diltiazem HCl (Cardizem) 60 mg PO Q6HR [facility] Stop: 09/19/16 17:59 Last Admin: 07/22/16 13:34 Dose: 60 mg Famotidine (Pepcid) 20 mg PO DAILY [facility] Stop: 09/16/16 08:59 Last Admin: 07/22/16 09:11 Dose: 20 mg Ferrous Sulfate (Iron) 220 mg PO TID [facility] Stop: 09/15/16 20:59 Last Admin: 07/22/16 13:35 Dose: 220 mg Folic Acid (Folate) 1 mg PO DAILY [facility] Stop: 09/16/16 08:59 Last Admin: 07/22/16 09:12 Dose: 1 mg Gabapentin (Neurontin) 300 mg PO BID [facility] Stop: 09/15/16 16:59 Last Admin: 07/22/16 09:12 Dose: 300 mg Guaifenesin (Robitussin) 200 mg PO Q4HR PRN PRN Reason: Cough or Congestion Stop: 09/15/16 16:17 Last Admin: 07/19/16 22:47 Dose: 200 mg Cefepime HCl 1 gm/ Dextrose 50 mls @ 100 mls/hr IV Q12H [facility] Stop: 09/15/16 16:29 Last Infusion: 07/22/16 05:12 Dose: Infused Dextrose/Sodium Chloride (D5-0.45ns) 1,000 mls @ 60 mls/hr IV .[id number] [facility] Stop: 09/15/16 16:29 Last Admin: 07/21/16 23:38 Dose: 60 mls/hr Ipratropium [place] (Atrovent Neb 0.5mg/2.5ml) 0.5 mg IH QID [facility] Stop: 09/15/16 16:59 Last Admin: 07/22/16 14:27 Dose: 0.5 mg Lactulose (Cephulac) 20 gm PO DAILY [facility] Stop: 09/18/16 08:59 Last Admin: 07/22/16 09:25 Dose: 20 gm Levetiracetam (Keppra) 1,000 mg PO Q12H [facility] Stop: 09/15/16 16:14 Last Admin: 07/22/16 04:19 Dose: 1,000 mg Levothyroxine Sodium (Synthroid) 0.05 mg PO QAM [facility] Stop: 09/16/16 08:59 Last Admin: 07/22/16 09:25 Dose: 0.05 mg Methylprednisolone Sodium Succinate (Solu-Medrol) 80 mg IVP Q8HR [facility] Stop: 09/18/16 20:59 Last Admin: 07/22/16 13:35 Dose: 80 mg Ondansetron HCl (Zofran) 4 mg IV Q8H PRN PRN Reason: Nausea / Vomiting Stop: 09/15/16 16:17 Sodium Phosphate (Fleet Enema) 135 ml RC DAILY PRN PRN Reason: Constipation Stop: 09/18/16 06:58 Temazepam (Restoril) 30 mg PO HS PRN; Protocol PRN Reason: Insomnia Stop: 09/18/16 15:29 Last Admin: 07/21/16 21:24 Dose: 30 mg Thiamine HCl (Vitamin B1) 100 mg PO DAILY [facility] Stop: 09/16/16 08:59 Last Admin: 07/22/16 09:12 Dose: 100 mg Warfarin Sodium (Coumadin Per Pharmacy) 1 ea [facility] PRN PRN; Protocol PRN Reason: RX MONITORING Stop: 09/18/16 18:44 Zolpidem Tartrate (Ambien) 10 mg PO HS PRN PRN Reason: Insomnia Stop: 09/15/16 16:17 Last Admin: 07/20/16 01:10 Dose: 10 mg Assessment/Plan - Problem List Patient Problems: All Active Problems SOB (Acute ~07/17/16) Nutritional Asmnt/Malnutr-PDOC - Dietary Evaluation Malnutrition Findings (Please click <Entered> for more info): Nutritional Asmnt/Malnutrition Start: 07/21/16 15: 24 Text: Status: Complete Freq: Document 07/21/16 15:25 GSUN (Rec: 07/21/16 15:53 GSUN [email or web address]) Nutritional Asmnt/Malnutrition Patient General Information Nutritional Screening Moderate Risk Screening Diagnosis Hypoxemia, CHF, elevated troponin, dementia, HTN, COPD Pertinent Medical Hx/Surgical Hx CHF, asthma, hypothyroidism, dementia, CAD Subjective Information 07/[address]: massive hiatal hernia almost all of stomach, severely distended bowel loops, cholelithiasis. RN noted large liquid brown BM this morning. Pt ordered clear liquid to start this dinner. Spoke to pt this morning with RN at bedside assisting with meals, no difficulties observed, pt has few missing teeth. Avg PO intake 25-75% of meals since adm. Pt was orientated, slightly slow in response, able to confirm food preferences with RD, stated likes for fish and beef, dislikes for chicken, egg, turkey, pork. FNS notified. CBW bedscale 131.9lb, pt report UBW 115lb, EMR 120lb. Current Diet Order/ Nutrition Support Clear liquid Pertinent Medications Dulcolax, D5, Pepcid, Iron, Folate, Synthroid, Solu-Medrol , Zofran, Fleet Enema, Vitamin B1, Coumadin Pertinent Labs 07/18: A1c 5.1 07/20: glucose 158H Nutritional Hx/Data Height 1.63 m Height (Calculated Centimeters) 162.6 Current Weight (lbs) 54.431 kg Weight (Calculated Kilograms) 54.4 Weight (Calculated Grams) 78945.1 Usual body Weight (lbs) 115 [place] Body Weight 120 Weight Status Approriate GI Symptoms GI Symptoms Diarrhea Food Allergies No Cultural/Ethnic/[employer]ab[employer] Belief RD noted pt's food preferences , not allergies, refer to subejctive above. Skin Integrity/Comment: Chilo 13. Wound care 07/21: skin intact, some discolorations noted. Estimated Nutritional Goals BEE in Kcals: Using Current wt Calories/Kcals/Kg CBW 54.4kg Kcals Calculated 1360-1632kcal (25-30kcal/kg) Protein: Using Current wt Protein Calculated 54g (1g/kg) Fluid: ml 1360-1632ml (1ml/kcal) Nutritional Problem 1. Problem Problem Altered GI function related to Etiology 07/[address]: massive hiatal hernia almost all of stomach, severely distended bowel loops, cholelithiasis aeb Signs/Symptoms: currently clear liquid diet, diarrhea, distended abdominal, suboptimla PO intake Intervention/Recommendation Comments 1. Continue clear liquid diet. Diet advanmcent per MD. Recommend resume diet [id number] [facility] soft chopped. Expected Outcomes/Goals Expected Outcomes/Goals 1. PO intake to meet at least 50% of estimated nutritional needs.
[2016-07-22] MEDS ORDERED: methylPREDNISolone SS 40 mg Vial IVP SCH (21:00)
[2016-07-23] MEDS: D5-0.45NS 1,000 ML IV SCH
[2016-07-23 04:50] LABS: HEMOGLOBIN 12.8 gm/dL (11.7-16.1)
[2016-07-23 04:54] LABS: HEMATOCRIT 38.2 % (35.0-45.0); MEAN CELL VOLUME 87.9 fl (81-100); MEAN CORPUSCULAR HEMOGLOBIN 29.5 pg (27.0-31.0); MEAN CORPUSCULAR HGB CONC 33.5 pg (28.0-36.0); MEAN PLATELET VOLUME 6.5 fl; PLATELET COUNT 184 Th/cmm (150-400); RED BLOOD COUNT 4.35 Mil/cmm (3.80-5.20); RED CELL DISTRIBUTION WIDTH 14.1 % (11.5-20.0)
[2016-07-23 05:10] LABS: ALB/GLOB RATIO 0.9 (1.0-1.8); ALKALINE PHOSPHATASE 41 U/L (34-104); BILIRUBIN,TOTAL 0.4 mg/dL (0.3-1.0); BUN - UREA NITROGEN 14 mg/dL (7-25); BUN/CREATININE RATIO 23.3; CALCIUM SERUM 8.9 mg/dL (8.6-10.3); CARBON DIOXIDE 29.3 mEq/L (21.0-31.0); CHLORIDE 104 mEq/L (98-107); CREATININE - SERUM 0.6 mg/dL (0.6-1.2); GLUCOSE 148 mg/dL (70-105); POTASSIUM SERUM 4.3 mEq/L (3.5-5.1); SGOT 17 U/L (13-39); SGPT/ALT 18 U/L (7-52); SODIUM SERUM 137 mEq/L (136-145)
[2016-07-23 05:11] LABS: WHITE BLOOD COUNT 7.5 Th/cmm (4.8-10.8)
[2016-07-23 05:15] LABS: INR 1.38 (0.5-1.4); PROTHROMBIN TIME (TEST) 14.6 SECONDS (9.5-11.5)
[2016-07-23 05:30] LABS: pH 7.37 (7.35-7.45)
[2016-07-23 05:32] LABS: ABG SOURCE ATERIAL; ALLEN TEST Positive; BE(B) 5.7 mEq/L (-3.0-3.0)
[2016-07-23 05:33] LABS: FIO2 21
[2016-07-23 05:34] LABS: CRITICAL VALUES REPORTED BY DV
[2016-07-23] MEDS: Diltiazem 30 mg Tab PO SCH ×2 (05:48→16:19)
[2016-07-23 06:21] LABS: BAND NEUTROPHILE 1 % (0-10); NEUTROPHILS 93 % (40-80); PLATELET ESTIMATE ADEQUATE (NORMAL); TOTAL CELLS COUNTED 100
[2016-07-23] MEDS: Albuterol Nebulizer 2.5mg/3mL HHN SCH ×3 (06:54→18:51)
[2016-07-23] MEDS: Budesonide 0.5 Mg/2 mL Ud HHN SCH ×2 (06:54→18:51)
[2016-07-23] MEDS: Ipratropium Neb 0.5 mg/2.5 mL UD IH SCH (06:54)
[2016-07-23] MEDS: Levothyroxine 0.05 Mg Tab PO SCH (09:03)
[2016-07-23] MEDS: Lactulose 10 Gm/15 mL 30mL UDC PO SCH (09:04)
[2016-07-23] MEDS: Ferrous Sulfate 300 MG/5 ML UDC PO SCH ×3 (09:05→20:36)
--- NOTE | 2016-07-23 09:51 | General Progress Note ---
Subjective - Review of Systems Service Date: 07/23/16 Events since last encounter: no distress Subjective: pt in icu [address] rowe planning to do hernia repair not cleared bycardio Objective - Results Result Diagrams: 07/23/16 04:18 07/23/16 04:18 Recent Labs: Laboratory Last Values WBC 7.5 Th/cmm (4.8-10.8) D 07/23/16 04:18 RBC 4.35 Mil/cmm (3.80-5.20) 07/23/16 04:18 Hgb 12.8 gm/dL (11.7-16.1) 07/23/16 04:18 Hct 38.2 % (35.0-45.0) 07/23/16 04:18 MCV 87.9 fl (81-100) 07/23/16 04:18 MCH 29.5 pg (27.0-31.0) 07/23/16 04:18 MCHC Differential 33.5 pg (28.0-36.0) 07/23/16 04:18 RDW 14.1 % (11.5-20.0) 07/23/16 04:18 Plt Count 184 Th/cmm (150-400) 07/23/16 04:18 MPV 6.5 fl 07/23/16 04:18 Neutrophils % 85.7 % (40.0-80.0) H 07/18/16 09:25 Band Neutrophils % 1 % (0-10) 07/23/16 04:18 Lymphocytes % 9.0 % (20.0-50.0) L 07/18/16 09:25 Monocytes % 1.6 % (2.0-10.0) L 07/18/16 09:25 Eosinophils % 0.1 % (0.0-5.0) 07/18/16 09:25 Basophils % 3.6 % (0.0-2.0) H 07/18/16 09:25 Neutrophils (Manual) 93 % (40-80) H 07/23/16 04:18 Lymphocytes 4 % (20-50) L 07/23/16 04:18 Monocytes 2 % (2-10) 07/23/16 04:18 Platelet Estimate ADEQUATE (NORMAL) 07/23/16 04:18 Platelet Morphology NORMAL (NORMAL) 07/20/16 08:15 RBC Morph Micro Appear NORMAL (NORMAL) 07/23/16 04:18 PT 14.6 SECONDS (9.5-11.5) H 07/23/16 04:18 INR 1.38 (0.5-1.4) 07/23/16 04:18 PTT (Actin FS) 32.8 SECONDS (26.0-38.0) 07/23/16 04:18 Specimen Source ATERIAL 07/23/16 05:00 Sample Site LB 07/23/16 05:00 pH 7.37 (7.35-7.45) 07/23/16 05:00 pCO2 56.0 mmHg (35.0-45.0) H* 07/23/16 05:00 pO2 56.0 mmHg (80.0-100.0) L 07/23/16 05:00 HCO3 29.0 mEq/L (20.0-26.0) H 07/23/16 05:00 Base Excess 5.7 mEq/L (-3.0-3.0) H 07/23/16 05:00 O2 Saturation 88.0 % (92.0-100.0) L 07/23/16 05:00 Von Test Positive 07/23/16 05:00 Vent Rate NA 07/23/16 05:00 Inspired O2 21 07/23/16 05:00 Tidal Volume NA 07/23/16 05:00 PEEP NA 07/23/16 05:00 Pressure (ins/psv/peep) NA 07/23/16 05:00 Critical Value DV 07/23/16 05:00 Sodium 137 mEq/L (136-145) 07/23/16 04:18 Potassium 4.3 mEq/L (3.5-5.1) 07/23/16 04:18 Chloride 104 mEq/L (98-107) 07/23/16 04:18 Carbon Dioxide 29.3 mEq/L (21.0-31.0) 07/23/16 04:18 Anion Gap 8.0 (7.0-16.0) 07/23/16 04:18 BUN 14 mg/dL (7-25) 07/23/16 04:18 Creatinine 0.6 mg/dL (0.6-1.2) 07/23/16 04:18 Est GFR ( Amer) TNP 07/23/16 04:18 Est GFR (Non-Af Amer) TNP 07/23/16 04:18 BUN/Creatinine Ratio 23.3 07/23/16 04:18 Glucose 148 mg/dL (70-105) H 07/23/16 04:18 Hemoglobin A1c % 5.1 % (4.0-6.0) 07/18/16 01:22 Calcium 8.9 mg/dL (8.6-10.3) 07/23/16 04:18 Magnesium 2.1 mg/dL (1.9-2.7) 07/18/16 09:25 Total Bilirubin 0.4 mg/dL (0.3-1.0) 07/23/16 04:18 AST 17 U/L (13-39) 07/23/16 04:18 ALT 18 U/L (7-52) 07/23/16 04:18 Alkaline Phosphatase 41 U/L (34-104) 07/23/16 04:18 Ammonia 49 umol/L (16-53) 07/18/16 09:25 Troponin I 0.08 ng/mL (0.01-0.05) H* D 07/18/16 09:25 B-Natriuretic Peptide 82.1 pg/mL (5.0-100.0) 07/23/16 04:18 Total Protein 6.0 gm/dL (6.0-8.3) 07/23/16 04:18 Albumin 2.8 gm/dL (3.7-5.3) L 07/23/16 04:18 Globulin 3.2 gm/dL 07/23/16 04:18 Albumin/Globulin Ratio 0.9 (1.0-1.8) L 07/23/16 04:18 Triglycerides 78 mg/dL (<150) 07/17/16 12:42 Cholesterol 129 mg/dL (<200) 07/17/16 12:42 LDL Cholesterol Direct 81 mg/dL (75-193) 07/17/16 12:42 HDL Cholesterol 39 mg/dL (23-92) 07/17/16 12:42 Vitamin B12 377 pg/mL (211-946) 07/18/16 09:25 Folic Acid >20.0 ng/mL (>3.0) 07/18/16 09:25 TSH 2.99 uIU/ml (0.34-5.60) 07/17/16 12:42 RPR NONREACTIVE (NONREACTIVE) 07/17/16 12:42 Blood Type A POSITIVE 07/23/16 04:18 Antibody Screen NEGATIVE 07/23/16 04:18 Crossmatch See Detail 07/23/16 04:18 - Physical Exam Vitals and I&O: Vital Signs Temp 98.3 F 07/23/16 07:56 Pulse 78 07/23/16 07:56 Resp 18 07/23/16 07:56 BP 138/81 07/23/16 07:56 Pulse Ox 97 07/23/16 07:56 Intake & Output 07/22/16 07/23/16 07/23/16 18:59 06:59 18:59 Intake Total 1050 500 450 Output Total 700 Balance 1050 -200 450 Intake: Intake, IV Amount 1050 50 Cefepime 1 gm In Dextrose 50 50 5% 50 ml @ 100 mls/hr IV Q12H COUNTS INCLUDE 234 BEDS AT [facility] Rx#:[id number] D5-0.45NS 1,000 ml @ 60 1000 mls/hr IV .[id number] COUNTS INCLUDE 234 BEDS AT THE [facility] Rx #:[id number] Oral 450 450 Output: Urine 700 Other: # Voids 2 2 # Bowel Movements 0 0 Active Medications: Current Medications Acetaminophen (Tylenol) 650 mg PO Q4HR PRN PRN Reason: Pain or Fever >101 Stop: 09/15/16 16:17 Albuterol Sulfate (Albuterol 2.5mg/3ml Neb Ud) 2.5 mg HHN QIDRT COUNTS INCLUDE 234 BEDS AT THE [facility] Stop: 09/15/16 16:59 Last Admin: 07/23/16 06:54 Dose: 2.5 mg Albuterol/Ipratropium (Duoneb Neb) 3 ml HHN Q2H PRN PRN Reason: Wheezing Stop: 09/15/16 20:49 Last Admin: 07/20/16 06:48 Dose: 3 ml Amiodarone HCl (Cordarone) 200 mg PO DAILY COUNTS INCLUDE 234 BEDS AT [facility] Stop: 09/17/16 08:59 Last Admin: 07/23/16 09:01 Dose: Not Given Budesonide (Pulmicort) 0.5 mg HHN BIDRT COUNTS INCLUDE 234 BEDS AT [facility] Stop: 09/16/16 06:59 Last Admin: 07/23/16 06:54 Dose: 0.5 mg Diltiazem HCl (Cardizem) 60 mg PO Q6HR COUNTS INCLUDE 234 BEDS AT THE [facility] Stop: 09/19/16 17:59 Last Admin: 07/23/16 05:48 Dose: Not Given Famotidine (Pepcid) 20 mg PO DAILY [facility] Stop: 09/16/16 08:59 Last Admin: 07/23/16 09:05 Dose: Not Given Ferrous Sulfate (Iron) 220 mg PO TID [facility] Stop: 09/15/16 20:59 Last Admin: 07/23/16 09:05 Dose: Not Given Folic Acid (Folate) 1 mg PO DAILY [facility] Stop: 09/16/16 08:59 Last Admin: 07/23/16 09:04 Dose: Not Given Gabapentin (Neurontin) 300 mg PO BID COUNTS INCLUDE 234 BEDS AT [facility] Stop: 09/15/16 16:59 Last Admin: 07/23/16 09:04 Dose: Not Given Guaifenesin (Robitussin) 200 mg PO Q4HR PRN PRN Reason: Cough or Congestion Stop: 09/15/16 16:17 Last Admin: 07/19/16 22:47 Dose: 200 mg Cefepime HCl 1 gm/ Dextrose 50 mls @ 100 mls/hr IV Q12H COUNTS INCLUDE 234 BEDS AT THE [facility] Stop: 09/15/16 16:29 Last Infusion: 07/23/16 04:59 Dose: Infused Dextrose/Sodium Chloride (D5-0.45ns) 1,000 mls @ 60 mls/hr IV .[id number] COUNTS INCLUDE 234 BEDS AT THE [facility] Stop: 09/15/16 16:29 Last Admin: 07/23/16 00:00 Dose: 60 mls/hr Ipratropium [place] (Atrovent Neb 0.5mg/2.5ml) 0.5 mg HHN QIDRT COUNTS INCLUDE 234 BEDS AT [facility] Stop: 09/21/16 10:59 Lactulose (Cephulac) 20 gm PO DAILY COUNTS INCLUDE 234 BEDS AT THE [facility] Stop: 09/18/16 08:59 Last Admin: 07/23/16 09:04 Dose: Not Given Levetiracetam (Keppra) 1,000 mg PO Q12H COUNTS INCLUDE 234 BEDS AT [facility] Stop: 09/15/16 16:14 Last Admin: 07/23/16 05:47 Dose: Not Given Levothyroxine Sodium (Synthroid) 0.05 mg PO QAM COUNTS INCLUDE 234 BEDS AT [facility] Stop: 09/16/16 08:59 Last Admin: 07/23/16 09:03 Dose: Not Given Methylprednisolone Sodium Succinate (Solu-Medrol) 40 mg IVP Q12HR [facility] Stop: 09/20/16 20:59 Last Admin: 07/22/16 20:29 Dose: 40 mg Ondansetron HCl (Zofran) 4 mg IV Q8H PRN PRN Reason: Nausea / Vomiting Stop: 09/15/16 16:17 Sodium Phosphate (Fleet Enema) 135 ml RC DAILY PRN PRN Reason: Constipation Stop: 09/18/16 06:58 Temazepam (Restoril) 30 mg PO HS PRN; Protocol PRN Reason: Insomnia Stop: 09/18/16 15:29 Last Admin: 07/22/16 23:54 Dose: 30 mg Thiamine HCl (Vitamin B1) 100 mg PO DAILY [facility] Stop: 09/16/16 08:59 Last Admin: 07/23/16 09:02 Dose: Not Given Zolpidem Tartrate (Ambien) 10 mg PO HS PRN PRN Reason: Insomnia Stop: 09/15/16 16:17 Last Admin: 07/20/16 01:10 Dose: 10 mg General: No acute distress, Other (sob) HEENT: Atraumatic Neck: Supple Cardiovascular: Regular rate Abdomen: Bowel sounds Assessment/Plan - Problem List Patient Problems: All Active Problems Acute exacerbation of COPD with asthma (Acute) J44.1, J45.901 CHF (congestive heart failure), NYHA class III (Acute) I50.9 SOB (Acute ~07/17/16) dementia (Acute) hypothyroidism (Acute) non stemi (Acute) - Plan Plan: high risk for surgery needs cardiac clearence Nutritional Asmnt/Malnutr-PDOC - Dietary Evaluation Malnutrition Findings (Please click <Entered> for more info): Nutritional Asmnt/Malnutrition Start: 07/21/16 15: 24 Text: Status: Complete Freq: Document 07/21/16 15:25 GSUN (Rec: 07/21/16 15:53 GSUN [facility]) Nutritional Asmnt/Malnutrition Patient General Information Nutritional Screening Moderate Risk Screening Diagnosis Hypoxemia, CHF, elevated troponin, dementia, HTN, COPD Pertinent Medical Hx/Surgical Hx CHF, asthma, hypothyroidism, dementia, CAD Subjective Information 07/[address]: massive hiatal hernia almost all of stomach, severely distended bowel loops, cholelithiasis. RN noted large liquid brown BM this morning. Pt ordered clear liquid to start this dinner. Spoke to pt this morning with RN at bedside assisting with meals, no difficulties observed, pt has few missing teeth. Avg PO intake 25-75% of meals since adm. Pt was orientated, slightly slow in response, able to confirm food preferences with RD, stated likes for fish and beef, dislikes for chicken, egg, turkey, pork. FNS notified. CBW bedscale 131.9lb, pt report UBW 115lb, EMR 120lb. Current Diet Order/ Nutrition Support Clear liquid Pertinent Medications Dulcolax, D5, Pepcid, Iron, Folate, Synthroid, Solu-Medrol , Zofran, Fleet Enema, Vitamin B1, Coumadin Pertinent Labs 07/18: A1c 5.1 07/20: glucose 158H Nutritional Hx/Data Height 1.63 m Height (Calculated Centimeters) 162.6 Current Weight (lbs) 54.431 kg Weight (Calculated Kilograms) 54.4 Weight (Calculated Grams) 39806.1 Usual body Weight (lbs) 115 [place] Body Weight 120 Weight Status Approriate GI Symptoms GI Symptoms Diarrhea Food Allergies No Cultural/Ethnic/Sikhism Belief RD noted pt's food preferences , not allergies, refer to subejctive above. Skin Integrity/Comment: Chilo 13. Wound care 07/21: skin intact, some discolorations noted. Estimated Nutritional Goals BEE in Kcals: Using Current wt Calories/Kcals/Kg CBW 54.4kg Kcals Calculated 1360-1632kcal (25-30kcal/kg) Protein: Using Current wt Protein Calculated 54g (1g/kg) Fluid: ml 1360-1632ml (1ml/kcal) Nutritional Problem 1. Problem Problem Altered GI function related to Etiology 07/[address]: massive hiatal hernia almost all of stomach, severely distended bowel loops, cholelithiasis aeb Signs/Symptoms: currently clear liquid diet, diarrhea, distended abdominal, suboptimla PO intake Intervention/Recommendation Comments 1. Continue clear liquid diet. Diet advanmcent per MD. Recommend resume diet [id number] mech soft chopped. Expected Outcomes/Goals Expected Outcomes/Goals 1. PO intake to meet at least 50% of estimated nutritional needs.
[2016-07-23] MEDS: Ipratropium Neb 0.5 mg/2.5 mL UD HHN SCH ×2 (10:34→18:51)
--- NOTE | 2016-07-23 12:57 | General Progress Note ---
Subjective - Review of Systems Service Date: 07/23/16 Events since last encounter: while waiting to get started with surgery, patient complained of chest pain Seen by Dr. Sonali Molina and surgery was cancelled Objective - Results Result Diagrams: 07/23/16 04:18 07/23/16 04:18 Recent Labs: Laboratory Last Values WBC 7.5 Th/cmm (4.8-10.8) D 07/23/16 04:18 RBC 4.35 Mil/cmm (3.80-5.20) 07/23/16 04:18 Hgb 12.8 gm/dL (11.7-16.1) 07/23/16 04:18 Hct 38.2 % (35.0-45.0) 07/23/16 04:18 MCV 87.9 fl (81-100) 07/23/16 04:18 MCH 29.5 pg (27.0-31.0) 07/23/16 04:18 MCHC Differential 33.5 pg (28.0-36.0) 07/23/16 04:18 RDW 14.1 % (11.5-20.0) 07/23/16 04:18 Plt Count 184 Th/cmm (150-400) 07/23/16 04:18 MPV 6.5 fl 07/23/16 04:18 Neutrophils % 85.7 % (40.0-80.0) H 07/18/16 09:25 Band Neutrophils % 1 % (0-10) 07/23/16 04:18 Lymphocytes % 9.0 % (20.0-50.0) L 07/18/16 09:25 Monocytes % 1.6 % (2.0-10.0) L 07/18/16 09:25 Eosinophils % 0.1 % (0.0-5.0) 07/18/16 09:25 Basophils % 3.6 % (0.0-2.0) H 07/18/16 09:25 Neutrophils (Manual) 93 % (40-80) H 07/23/16 04:18 Lymphocytes 4 % (20-50) L 07/23/16 04:18 Monocytes 2 % (2-10) 07/23/16 04:18 Platelet Estimate ADEQUATE (NORMAL) 07/23/16 04:18 Platelet Morphology NORMAL (NORMAL) 07/20/16 08:15 RBC Morph Micro Appear NORMAL (NORMAL) 07/23/16 04:18 PT 14.6 SECONDS (9.5-11.5) H 07/23/16 04:18 INR 1.38 (0.5-1.4) 07/23/16 04:18 PTT (Actin FS) 32.8 SECONDS (26.0-38.0) 07/23/16 04:18 Specimen Source ATERIAL 07/23/16 05:00 Sample Site LB 07/23/16 05:00 pH 7.37 (7.35-7.45) 07/23/16 05:00 pCO2 56.0 mmHg (35.0-45.0) H* 07/23/16 05:00 pO2 56.0 mmHg (80.0-100.0) L 07/23/16 05:00 HCO3 29.0 mEq/L (20.0-26.0) H 07/23/16 05:00 Base Excess 5.7 mEq/L (-3.0-3.0) H 07/23/16 05:00 O2 Saturation 88.0 % (92.0-100.0) L 07/23/16 05:00 Von Test Positive 07/23/16 05:00 Vent Rate NA 07/23/16 05:00 Inspired O2 21 07/23/16 05:00 Tidal Volume NA 07/23/16 05:00 PEEP NA 07/23/16 05:00 Pressure (ins/psv/peep) NA 07/23/16 05:00 Critical Value DV 07/23/16 05:00 Sodium 137 mEq/L (136-145) 07/23/16 04:18 Potassium 4.3 mEq/L (3.5-5.1) 07/23/16 04:18 Chloride 104 mEq/L (98-107) 07/23/16 04:18 Carbon Dioxide 29.3 mEq/L (21.0-31.0) 07/23/16 04:18 Anion Gap 8.0 (7.0-16.0) 07/23/16 04:18 BUN 14 mg/dL (7-25) 07/23/16 04:18 Creatinine 0.6 mg/dL (0.6-1.2) 07/23/16 04:18 Est GFR ( Amer) TNP 07/23/16 04:18 Est GFR (Non-Af Amer) TNP 07/23/16 04:18 BUN/Creatinine Ratio 23.3 07/23/16 04:18 Glucose 148 mg/dL (70-105) H 07/23/16 04:18 Hemoglobin A1c % 5.1 % (4.0-6.0) 07/18/16 01:22 Calcium 8.9 mg/dL (8.6-10.3) 07/23/16 04:18 Magnesium 2.1 mg/dL (1.9-2.7) 07/18/16 09:25 Total Bilirubin 0.4 mg/dL (0.3-1.0) 07/23/16 04:18 AST 17 U/L (13-39) 07/23/16 04:18 ALT 18 U/L (7-52) 07/23/16 04:18 Alkaline Phosphatase 41 U/L (34-104) 07/23/16 04:18 Ammonia 49 umol/L (16-53) 07/18/16 09:25 Troponin I 0.08 ng/mL (0.01-0.05) H* D 07/18/16 09:25 B-Natriuretic Peptide 82.1 pg/mL (5.0-100.0) 07/23/16 04:18 Total Protein 6.0 gm/dL (6.0-8.3) 07/23/16 04:18 Albumin 2.8 gm/dL (3.7-5.3) L 07/23/16 04:18 Globulin 3.2 gm/dL 07/23/16 04:18 Albumin/Globulin Ratio 0.9 (1.0-1.8) L 07/23/16 04:18 Triglycerides 78 mg/dL (<150) 07/17/16 12:42 Cholesterol 129 mg/dL (<200) 07/17/16 12:42 LDL Cholesterol Direct 81 mg/dL (75-193) 07/17/16 12:42 HDL Cholesterol 39 mg/dL (23-92) 07/17/16 12:42 Vitamin B12 377 pg/mL (211-946) 07/18/16 09:25 Folic Acid >20.0 ng/mL (>3.0) 07/18/16 09:25 TSH 2.99 uIU/ml (0.34-5.60) 07/17/16 12:42 RPR NONREACTIVE (NONREACTIVE) 07/17/16 12:42 Blood Type A POSITIVE 07/23/16 04:18 Antibody Screen NEGATIVE 07/23/16 04:18 Crossmatch See Detail 07/23/16 04:18 - Physical Exam Vitals and I&O: Vital Signs Temp 98.3 F 07/23/16 07:56 Pulse 74 07/23/16 10:34 Resp 20 07/23/16 10:34 BP 138/81 07/23/16 07:56 Pulse Ox 94 07/23/16 10:34 Intake & Output 07/22/16 07/23/16 07/23/16 18:59 06:59 18:59 Intake Total 1050 500 450 Output Total 700 Balance 1050 -200 450 Intake: Intake, IV Amount 1050 50 Cefepime 1 gm In Dextrose 50 50 5% 50 ml @ 100 mls/hr IV Q12H [facility] Rx#:[id number] D5-0.45NS 1,000 ml @ 60 1000 mls/hr IV .[id number] [facility] Rx #:[id number] Oral 450 450 Output: Urine 700 Other: # Voids 2 2 # Bowel Movements 0 0 Active Medications: Current Medications Acetaminophen (Tylenol) 650 mg PO Q4HR PRN PRN Reason: Pain or Fever >101 Stop: 09/15/16 16:17 Albuterol Sulfate (Albuterol 2.5mg/3ml Neb Ud) 2.5 mg HHN QIDRT [facility] Stop: 09/15/16 16:59 Last Admin: 07/23/16 10:34 Dose: 2.5 mg Albuterol/Ipratropium (Duoneb Neb) 3 ml HHN Q2H PRN PRN Reason: Wheezing Stop: 09/15/16 20:49 Last Admin: 07/20/16 06:48 Dose: 3 ml Amiodarone HCl (Cordarone) 200 mg PO DAILY [facility] Stop: 09/17/16 08:59 Last Admin: 07/23/16 09:01 Dose: Not Given Budesonide (Pulmicort) 0.5 mg HHN BIDRT [facility] Stop: 09/16/16 06:59 Last Admin: 07/23/16 06:54 Dose: 0.5 mg Diltiazem HCl (Cardizem) 60 mg PO Q6HR [facility] Stop: 09/19/16 17:59 Last Admin: 07/23/16 05:48 Dose: Not Given Famotidine (Pepcid) 20 mg PO DAILY [facility] Stop: 09/16/16 08:59 Last Admin: 07/23/16 09:05 Dose: Not Given Ferrous Sulfate (Iron) 220 mg PO TID [facility] Stop: 09/15/16 20:59 Last Admin: 07/23/16 09:05 Dose: Not Given Folic Acid (Folate) 1 mg PO DAILY [facility] Stop: 09/16/16 08:59 Last Admin: 07/23/16 09:04 Dose: Not Given Gabapentin (Neurontin) 300 mg PO BID [facility] Stop: 09/15/16 16:59 Last Admin: 07/23/16 09:04 Dose: Not Given Guaifenesin (Robitussin) 200 mg PO Q4HR PRN PRN Reason: Cough or Congestion Stop: 09/15/16 16:17 Last Admin: 07/19/16 22:47 Dose: 200 mg Cefepime HCl 1 gm/ Dextrose 50 mls @ 100 mls/hr IV Q12H [facility] Stop: 09/15/16 16:29 Last Infusion: 07/23/16 04:59 Dose: Infused Dextrose/Sodium Chloride (D5-0.45ns) 1,000 mls @ 60 mls/hr IV .[id number] [facility] Stop: 09/15/16 16:29 Last Admin: 07/23/16 00:00 Dose: 60 mls/hr Ipratropium [place] (Atrovent Neb 0.5mg/2.5ml) 0.5 mg HHN QIDRT [facility] Stop: 09/21/16 10:59 Last Admin: 07/23/16 10:34 Dose: 0.5 mg Lactulose (Cephulac) 20 gm PO DAILY [facility] Stop: 09/18/16 08:59 Last Admin: 07/23/16 09:04 Dose: Not Given Levetiracetam (Keppra) 1,000 mg PO Q12H [facility] Stop: 09/15/16 16:14 Last Admin: 07/23/16 05:47 Dose: Not Given Levothyroxine Sodium (Synthroid) 0.05 mg PO QAM [facility] Stop: 09/16/16 08:59 Last Admin: 07/23/16 09:03 Dose: Not Given Methylprednisolone Sodium Succinate (Solu-Medrol) 40 mg IVP Q12HR [facility] Stop: 09/20/16 20:59 Last Admin: 07/22/16 20:29 Dose: 40 mg Ondansetron HCl (Zofran) 4 mg IV Q8H PRN PRN Reason: Nausea / Vomiting Stop: 09/15/16 16:17 Sodium Phosphate (Fleet Enema) 135 ml RC DAILY PRN PRN Reason: Constipation Stop: 09/18/16 06:58 Temazepam (Restoril) 30 mg PO HS PRN; Protocol PRN Reason: Insomnia Stop: 09/18/16 15:29 Last Admin: 07/22/16 23:54 Dose: 30 mg Thiamine HCl (Vitamin B1) 100 mg PO DAILY [facility] Stop: 09/16/16 08:59 Last Admin: 07/23/16 09:02 Dose: Not Given Zolpidem Tartrate (Ambien) 10 mg PO HS PRN PRN Reason: Insomnia Stop: 09/15/16 16:17 Last Admin: 07/20/16 01:10 Dose: 10 mg Assessment/Plan - Problem List Patient Problems: All Active Problems SOB (Acute ~07/17/16) Nutritional Asmnt/Malnutr-PDOC - Dietary Evaluation Malnutrition Findings (Please click <Entered> for more info): Nutritional Asmnt/Malnutrition Start: 07/21/16 15: 24 Text: Status: Complete Freq: Document 07/21/16 15:25 GSUN (Rec: 07/21/16 15:53 [facility] Nutritional Asmnt/Malnutrition Patient General Information Nutritional Screening Moderate Risk Screening Diagnosis Hypoxemia, CHF, elevated troponin, dementia, HTN, COPD Pertinent Medical Hx/Surgical Hx CHF, asthma, hypothyroidism, dementia, CAD Subjective Information 07/[address]: massive hiatal hernia almost all of stomach, severely distended bowel loops, cholelithiasis. RN noted large liquid brown BM this morning. Pt ordered clear liquid to start this dinner. Spoke to pt this morning with RN at bedside assisting with meals, no difficulties observed, pt has few missing teeth. Avg PO intake 25-75% of meals since adm. Pt was orientated, slightly slow in response, able to confirm food preferences with RD, stated likes for fish and beef, dislikes for chicken, egg, turkey, pork. FNS notified. CBW bedscale 131.9lb, pt report UBW 115lb, EMR 120lb. Current Diet Order/ Nutrition Support Clear liquid Pertinent Medications Dulcolax, D5, Pepcid, Iron, Folate, Synthroid, Solu-Medrol , Zofran, Fleet Enema, Vitamin B1, Coumadin Pertinent Labs 07/18: A1c 5.1 07/20: glucose 158H Nutritional Hx/Data Height 1.63 m Height (Calculated Centimeters) 162.6 Current Weight (lbs) 54.431 kg Weight (Calculated Kilograms) 54.4 Weight (Calculated Grams) 27129.1 Usual body Weight (lbs) 115 [place] Body Weight 120 Weight Status Approriate GI Symptoms GI Symptoms Diarrhea Food Allergies No Cultural/Ethnic/Hindu Belief RD noted pt's food preferences , not allergies, refer to subejctive above. Skin Integrity/Comment: Chilo 13. Wound care 07/21: skin intact, some discolorations noted. Estimated Nutritional Goals BEE in Kcals: Using Current wt Calories/Kcals/Kg CBW 54.4kg Kcals Calculated 1360-1632kcal (25-30kcal/kg) Protein: Using Current wt Protein Calculated 54g (1g/kg) Fluid: ml 1360-1632ml (1ml/kcal) Nutritional Problem 1. Problem Problem Altered GI function related to Etiology 07/[address]: massive hiatal hernia almost all of stomach, severely distended bowel loops, cholelithiasis aeb Signs/Symptoms: currently clear liquid diet, diarrhea, distended abdominal, suboptimla PO intake Intervention/Recommendation Comments 1. Continue clear liquid diet. Diet advanmcent per MD. Recommend resume diet [id number] mech soft chopped. Expected Outcomes/Goals Expected Outcomes/Goals 1. PO intake to meet at least 50% of estimated nutritional needs.
[2016-07-23] MEDS: Albuterol/Ipratropium Neb 3 ML AERS HHN PRN (14:59)
[2016-07-23] MEDS ORDERED: Probiotic Screen MC PRN (16:10)
[2016-07-23] MEDS: methylPREDNISolone SS 40 mg Vial IVP SCH (20:48)
[2016-07-24] MEDS: Diltiazem 30 mg Tab PO SCH ×3 (01:09→08:00)
[2016-07-24] MEDS: D5-0.45NS 1,000 ML IV SCH (05:16)
[2016-07-24] MEDS: Ipratropium Neb 0.5 mg/2.5 mL UD HHN SCH ×3 (06:58→15:57)
[2016-07-24] MEDS: Albuterol Nebulizer 2.5mg/3mL HHN SCH ×3 (06:58→15:57)
[2016-07-24] MEDS: Budesonide 0.5 Mg/2 mL Ud HHN SCH (06:59)
[2016-07-24] MEDS: methylPREDNISolone SS 40 mg Vial IVP SCH (09:00)
[2016-07-24] MEDS ORDERED: Lactobacillus Rhamnosus 10 Billion CFU Capsule PO SCH (09:00)
[2016-07-24 10:14] LABS: ABG SOURCE Arterial; ALLEN TEST YES; BE(B) 6.1 mEq/L (-3.0-3.0); HCO3 29.6 mEq/L (20.0-26.0)
[2016-07-24 10:15] LABS: FIO2 32
--- NOTE | 2016-07-24 10:38 | Diagnostic Imaging Report ---
CHEST X-RAY: AP view INDICATION: Shortness of breath COMPARISON: 07/22/2016 FINDINGS: Large hiatal hernia is noted. Gas-filled loops of bowel of the upper abdomen are noted. Cardiomegaly is noted. Increased right perihilar markings are noted. No pleural effusions. IMPRESSION: Large hiatal hernia as seen on prior exams Gaseous filled loops of bowel in the upper abdomen. Please correlate with clinical findings. Increased right perihilar lung markings. This is likely due to bronchovascular crowding versus less likely focal infiltrates. Cardiomegaly.
[2016-07-24] MEDS: Levothyroxine 0.05 Mg Tab PO SCH (10:39)
[2016-07-24] MEDS: Lactulose 10 Gm/15 mL 30mL UDC PO SCH (10:45)
[2016-07-24] MEDS: Ferrous Sulfate 300 MG/5 ML UDC PO SCH (10:45)
--- NOTE | 2016-07-24 12:02 | General Progress Note ---
Subjective - Review of Systems Events since last encounter: no distress Subjective: pt in icu [address] rowe planning to do hernia repair not cleared bycardio Objective - Results Result Diagrams: 07/23/16 04:18 07/23/16 04:18 Recent Labs: Laboratory Last Values WBC 7.5 Th/cmm (4.8-10.8) D 07/23/16 04:18 RBC 4.35 Mil/cmm (3.80-5.20) 07/23/16 04:18 Hgb 12.8 gm/dL (11.7-16.1) 07/23/16 04:18 Hct 38.2 % (35.0-45.0) 07/23/16 04:18 MCV 87.9 fl (81-100) 07/23/16 04:18 MCH 29.5 pg (27.0-31.0) 07/23/16 04:18 MCHC Differential 33.5 pg (28.0-36.0) 07/23/16 04:18 RDW 14.1 % (11.5-20.0) 07/23/16 04:18 Plt Count 184 Th/cmm (150-400) 07/23/16 04:18 MPV 6.5 fl 07/23/16 04:18 Neutrophils % 85.7 % (40.0-80.0) H 07/18/16 09:25 Band Neutrophils % 1 % (0-10) 07/23/16 04:18 Lymphocytes % 9.0 % (20.0-50.0) L 07/18/16 09:25 Monocytes % 1.6 % (2.0-10.0) L 07/18/16 09:25 Eosinophils % 0.1 % (0.0-5.0) 07/18/16 09:25 Basophils % 3.6 % (0.0-2.0) H 07/18/16 09:25 Neutrophils (Manual) 93 % (40-80) H 07/23/16 04:18 Lymphocytes 4 % (20-50) L 07/23/16 04:18 Monocytes 2 % (2-10) 07/23/16 04:18 Platelet Estimate ADEQUATE (NORMAL) 07/23/16 04:18 Platelet Morphology NORMAL (NORMAL) 07/20/16 08:15 RBC Morph Micro Appear NORMAL (NORMAL) 07/23/16 04:18 PT 14.6 SECONDS (9.5-11.5) H 07/23/16 04:18 INR 1.38 (0.5-1.4) 07/23/16 04:18 PTT (Actin FS) 32.8 SECONDS (26.0-38.0) 07/23/16 04:18 Specimen Source Arterial 07/24/16 09:55 Sample Site Left Radial 07/24/16 09:55 pH 7.50 (7.35-7.45) H 07/24/16 09:55 pCO2 38.0 mmHg (35.0-45.0) 07/24/16 09:55 pO2 69.0 mmHg (80.0-100.0) L 07/24/16 09:55 HCO3 29.6 mEq/L (20.0-26.0) H 07/24/16 09:55 Base Excess 6.1 mEq/L (-3.0-3.0) H 07/24/16 09:55 O2 Saturation 95.0 % (92.0-100.0) 07/24/16 09:55 Von Test YES 07/24/16 09:55 Vent Rate NA 07/24/16 09:55 Inspired O2 32 07/24/16 09:55 Tidal Volume NA 07/24/16 09:55 PEEP NA 07/24/16 09:55 Pressure (ins/psv/peep) NA 07/24/16 09:55 Critical Value E.GARCIA 07/24/16 09:55 Sodium 137 mEq/L (136-145) 07/23/16 04:18 Potassium 4.3 mEq/L (3.5-5.1) 07/23/16 04:18 Chloride 104 mEq/L (98-107) 07/23/16 04:18 Carbon Dioxide 29.3 mEq/L (21.0-31.0) 07/23/16 04:18 Anion Gap 8.0 (7.0-16.0) 07/23/16 04:18 BUN 14 mg/dL (7-25) 07/23/16 04:18 Creatinine 0.6 mg/dL (0.6-1.2) 07/23/16 04:18 Est GFR ( Amer) TNP 07/23/16 04:18 Est GFR (Non-Af Amer) TNP 07/23/16 04:18 BUN/Creatinine Ratio 23.3 07/23/16 04:18 Glucose 148 mg/dL (70-105) H 07/23/16 04:18 POC Glucose 134 MG/DL (70 - 105) H 07/23/16 13:21 Hemoglobin A1c % 5.1 % (4.0-6.0) 07/18/16 01:22 Calcium 8.9 mg/dL (8.6-10.3) 07/23/16 04:18 Magnesium 2.1 mg/dL (1.9-2.7) 07/18/16 09:25 Total Bilirubin 0.4 mg/dL (0.3-1.0) 07/23/16 04:18 AST 17 U/L (13-39) 07/23/16 04:18 ALT 18 U/L (7-52) 07/23/16 04:18 Alkaline Phosphatase 41 U/L (34-104) 07/23/16 04:18 Ammonia 49 umol/L (16-53) 07/18/16 09:25 Troponin I 0.03 ng/mL (0.01-0.05) 07/23/16 15:52 B-Natriuretic Peptide 82.1 pg/mL (5.0-100.0) 07/23/16 04:18 Total Protein 6.0 gm/dL (6.0-8.3) 07/23/16 04:18 Albumin 2.8 gm/dL (3.7-5.3) L 07/23/16 04:18 Globulin 3.2 gm/dL 07/23/16 04:18 Albumin/Globulin Ratio 0.9 (1.0-1.8) L 07/23/16 04:18 Triglycerides 78 mg/dL (<150) 07/17/16 12:42 Cholesterol 129 mg/dL (<200) 07/17/16 12:42 LDL Cholesterol Direct 81 mg/dL (75-193) 07/17/16 12:42 HDL Cholesterol 39 mg/dL (23-92) 07/17/16 12:42 Vitamin B12 377 pg/mL (211-946) 07/18/16 09:25 Folic Acid >20.0 ng/mL (>3.0) 07/18/16 09:25 TSH 2.99 uIU/ml (0.34-5.60) 07/17/16 12:42 RPR NONREACTIVE (NONREACTIVE) 07/17/16 12:42 Blood Type A POSITIVE 07/23/16 04:18 Antibody Screen NEGATIVE 07/23/16 04:18 Crossmatch See Detail 07/23/16 04:18 - Physical Exam Vitals and I&O: Vital Signs Temp 97.5 F 07/24/16 06:00 Pulse 135 07/24/16 08:19 Resp 20 07/24/16 07:10 BP 153/99 07/24/16 07:00 Pulse Ox 99 07/24/16 07:10 Intake & Output 07/23/16 07/24/16 07/24/16 18:59 06:59 18:59 Intake Total 1450 150 Output Total 850 650 Balance 600 -500 Intake: Intake, IV Amount 1000 50 Cefepime 1 gm In Dextrose 50 5% 50 ml @ 100 mls/hr IV Q12H [facility] Rx#:[id number] D5-0.45NS 1,000 ml @ 60 1000 mls/hr IV .[id number] [facility] Rx #:[id number] Oral 450 100 Output: Urine 850 650 Stool 0 Other: # Voids 2 # Bowel Movements 0 Active Medications: Current Medications Acetaminophen (Tylenol) 650 mg PO Q4HR PRN PRN Reason: Pain or Fever >101 Stop: 09/15/16 16:17 Albuterol Sulfate (Albuterol 2.5mg/3ml Neb Ud) 2.5 mg HHN QIDRT [facility] Stop: 09/15/16 16:59 Last Admin: 07/24/16 06:58 Dose: 2.5 mg Albuterol/Ipratropium (Duoneb Neb) 3 ml HHN Q2H PRN PRN Reason: Wheezing Stop: 09/15/16 20:49 Last Admin: 07/23/16 14:59 Dose: 3 ml Amiodarone HCl (Cordarone) 200 mg PO DAILY [facility] Stop: 09/17/16 08:59 Last Admin: 07/24/16 08:19 Dose: 200 mg Budesonide (Pulmicort) 0.5 mg HHN BIDRT [facility] Stop: 09/16/16 06:59 Last Admin: 07/24/16 06:59 Dose: 0.5 mg Diltiazem HCl (Cardizem) 60 mg PO Q6HR [facility] Stop: 09/19/16 17:59 Last Admin: 07/24/16 08:00 Dose: 60 mg Famotidine (Pepcid) 20 mg PO DAILY [facility] Stop: 09/16/16 08:59 Last Admin: 07/24/16 10:43 Dose: 20 mg Ferrous Sulfate (Iron) 220 mg PO TID [facility] Stop: 09/15/16 20:59 Last Admin: 07/24/16 10:45 Dose: 220 mg Folic Acid (Folate) 1 mg PO DAILY [facility] Stop: 09/16/16 08:59 Last Admin: 07/24/16 10:39 Dose: 1 mg Gabapentin (Neurontin) 300 mg PO BID [facility] Stop: 09/15/16 16:59 Last Admin: 07/24/16 10:38 Dose: 300 mg Guaifenesin (Robitussin) 200 mg PO Q4HR PRN PRN Reason: Cough or Congestion Stop: 09/15/16 16:17 Last Admin: 07/19/16 22:47 Dose: 200 mg Cefepime HCl 1 gm/ Dextrose 50 mls @ 100 mls/hr IV Q12H [facility] Stop: 09/15/16 16:29 Last Infusion: 07/24/16 04:50 Dose: Infused Dextrose/Sodium Chloride (D5-0.45ns) 1,000 mls @ 60 mls/hr IV .[id number] [facility] Stop: 09/15/16 16:29 Last Admin: 07/24/16 05:16 Dose: 60 mls/hr Ipratropium [place] (Atrovent Neb 0.5mg/2.5ml) 0.5 mg HHN QIDRT [facility] Stop: 09/21/16 10:59 Last Admin: 07/24/16 06:58 Dose: 0.5 mg Lactulose (Cephulac) 20 gm PO DAILY [facility] Stop: 09/18/16 08:59 Last Admin: 07/24/16 10:45 Dose: 20 gm Levetiracetam (Keppra) 1,000 mg PO Q12H [facility] Stop: 09/15/16 16:14 Last Admin: 07/24/16 04:17 Dose: Not Given Levothyroxine Sodium (Synthroid) 0.05 mg PO QAM [facility] Stop: 09/16/16 08:59 Last Admin: 07/24/16 10:39 Dose: 0.05 mg Methylprednisolone Sodium Succinate (Solu-Medrol) 20 mg IVP Q12HR [facility] Stop: 09/21/16 14:01 Last Admin: 07/23/16 20:48 Dose: 20 mg Miscellaneous (Probiotic Screen) 1 ea MC PRN PRN PRN Reason: PROTOCOL Stop: 09/21/16 16:09 Ondansetron HCl (Zofran) 4 mg IV Q8H PRN PRN Reason: Nausea / Vomiting Stop: 09/15/16 16:17 Sodium Phosphate (Fleet Enema) 135 ml RC DAILY PRN PRN Reason: Constipation Stop: 09/18/16 06:58 Temazepam (Restoril) 30 mg PO HS PRN; Protocol PRN Reason: Insomnia Stop: 09/18/16 15:29 Last Admin: 07/22/16 23:54 Dose: 30 mg Thiamine HCl (Vitamin B1) 100 mg PO DAILY [facility] Stop: 09/16/16 08:59 Last Admin: 07/24/16 10:40 Dose: 100 mg Zolpidem Tartrate (Ambien) 10 mg PO HS PRN PRN Reason: Insomnia Stop: 09/15/16 16:17 Last Admin: 07/20/16 01:10 Dose: 10 mg General: No acute distress HEENT: Atraumatic Neck: Supple Cardiovascular: Regular rate Abdomen: Bowel sounds Assessment/Plan - Problem List Patient Problems: All Active Problems Acute exacerbation of COPD with asthma (Acute) J44.1, J45.901 CHF (congestive heart failure), NYHA class III (Acute) I50.9 SOB (Acute ~07/17/16) dementia (Acute) hypothyroidism (Acute) non stemi (Acute) - Plan Plan: high risk for surgery needs cardiac clearence Nutritional Asmnt/Malnutr-PDOC - Dietary Evaluation Malnutrition Findings (Please click <Entered> for more info): Nutritional Asmnt/Malnutrition Start: 07/21/16 15: 24 Text: Status: Complete Freq: Document 07/21/16 15:25 GSUN (Rec: 07/21/16 15:53 GSUN [email or web address]) Nutritional Asmnt/Malnutrition Patient General Information Nutritional Screening Moderate Risk Screening Diagnosis Hypoxemia, CHF, elevated troponin, dementia, HTN, COPD Pertinent Medical Hx/Surgical Hx CHF, asthma, hypothyroidism, dementia, CAD Subjective Information 07/[address]: massive hiatal hernia almost all of stomach, severely distended bowel loops, cholelithiasis. RN noted large liquid brown BM this morning. Pt ordered clear liquid to start this dinner. Spoke to pt this morning with RN at bedside assisting with meals, no difficulties observed, pt has few missing teeth. Avg PO intake 25-75% of meals since adm. Pt was orientated, slightly slow in response, able to confirm food preferences with RD, stated likes for fish and beef, dislikes for chicken, egg, turkey, pork. FNS notified. CBW bedscale 131.9lb, pt report UBW 115lb, EMR 120lb. Current Diet Order/ Nutrition Support Clear liquid Pertinent Medications Dulcolax, D5, Pepcid, Iron, Folate, Synthroid, Solu-Medrol , Zofran, Fleet Enema, Vitamin B1, Coumadin Pertinent Labs 07/18: A1c 5.1 07/20: glucose 158H Nutritional Hx/Data Height 1.63 m Height (Calculated Centimeters) 162.6 Current Weight (lbs) 54.431 kg Weight (Calculated Kilograms) 54.4 Weight (Calculated Grams) 54155.1 Usual body Weight (lbs) 115 [place] Body Weight 120 Weight Status Approriate GI Symptoms GI Symptoms Diarrhea Food Allergies No Cultural/Ethnic/Christianity Belief RD noted pt's food preferences , not allergies, refer to subejctive above. Skin Integrity/Comment: [place]ilo 13. Wound care 07/21: skin intact, some discolorations noted. Estimated Nutritional Goals BEE in Kcals: Using Current wt Calories/Kcals/Kg CBW 54.4kg Kcals Calculated 1360-1632kcal (25-30kcal/kg) Protein: Using Current wt Protein Calculated 54g (1g/kg) Fluid: ml 1360-1632ml (1ml/kcal) Nutritional Problem 1. Problem Problem Altered GI function related to Etiology 07/[address]: massive hiatal hernia almost all of stomach, severely distended bowel loops, cholelithiasis aeb Signs/Symptoms: currently clear liquid diet, diarrhea, distended abdominal, suboptimla PO intake Intervention/Recommendation Comments 1. Continue clear liquid diet. Diet advanmcent per MD. Recommend resume diet [id number] mech soft chopped. Expected Outcomes/Goals Expected Outcomes/Goals 1. PO intake to meet at least 50% of estimated nutritional needs.
[2016-07-24 12:04] LABS: INR 1.58 (0.5-1.4); PROTHROMBIN TIME (TEST) 16.8 SECONDS (9.5-11.5)
[2016-07-24 12:10] LABS: HEMOGLOBIN 13.9 gm/dL (11.7-16.1); MEAN CELL VOLUME 88.3 fl (81-100); MEAN CORPUSCULAR HGB CONC 32.9 pg (28.0-36.0); MEAN PLATELET VOLUME 6.6 fl; PLATELET COUNT 203 Th/cmm (150-400); RED BLOOD COUNT 4.79 Mil/cmm (3.80-5.20); RED CELL DISTRIBUTION WIDTH 14.3 % (11.5-20.0)
[2016-07-24 12:12] LABS: ALB/GLOB RATIO 0.7 (1.0-1.8); ALKALINE PHOSPHATASE 41 U/L (34-104); ANION GAP 7.8 (7.0-16.0); BILIRUBIN,TOTAL 0.6 mg/dL (0.3-1.0); BUN - UREA NITROGEN 16 mg/dL (7-25); CALCIUM SERUM 8.6 mg/dL (8.6-10.3); CARBON DIOXIDE 20.7 mEq/L (21.0-31.0); CHLORIDE 106 mEq/L (98-107); CREATININE - SERUM 0.5 mg/dL (0.6-1.2); GLUCOSE 162 mg/dL (70-105); POTASSIUM SERUM 3.5 mEq/L (3.5-5.1); SGOT 20 U/L (13-39); SGPT/ALT 12 U/L (7-52); SODIUM SERUM 131 mEq/L (136-145)
[2016-07-24 12:24] LABS: HEMATOCRIT 42.3 % (35.0-45.0); WHITE BLOOD COUNT 9.2 Th/cmm (4.8-10.8)
[2016-07-24 12:36] LABS: EOSINOPHIL 2 % (0-5); NEUTROPHILS 84 % (40-80); PLATELET ESTIMATE ADEQUATE (NORMAL); PLATELET MORPHOLOGY NORMAL (NORMAL); TOTAL CELLS COUNTED 100
--- NOTE | 2016-07-24 19:31 | Consultation ---
SURGICAL CONSULTATION REFERRING PHYSICIAN: Dr. Ryder. REASON FOR CONSULTATION: Shortness of breath. Thank you for referring this patient to me. HISTORY OF PRESENT ILLNESS: This is an 81-year-old female, admitted because of shortness of breath. The patient was found to have history of COPD, pneumonia, dementia, and congestive heart failure. The patient has been seen by architectural project manager and GI specialist. The CT scan of the abdomen shows fecal impaction and a very large hiatal hernia containing ____ stomach and colon. LABORATORY DATA: Laboratory studies show CBC to be within normal limits. Chemistry likewise. ABG; pCO2 high at 56. EKG shows [id number] MO with supraventricular tachycardia. The BNP is elevated. PHYSICAL EXAMINATION: ABDOMEN: Markedly distended and rotund with minimal tenderness; however, peristalsis is not audible. Left hemithorax, markedly decreased breath sounds. Informed consent discussed with the family, son and daughter, regarding high risk for this patient for relieving the hiatal hernia. They will make decision on results of test prior to surgery. The feeling at this point is to proceed with surgery pending medical clearance. JOB# [id number]
--- NOTE | 2016-07-27 09:32 | Discharge Summary ---
DATE OF DISCHARGE: 07/24/2016 The patient was admitted on July 17 to [place] and was discharged to [facility] on July 24. Per the ____, this is an elderly lady I know from ____ [facility] ____ detention. The patient became more congested and shortness of breath. The patient was sent to Emergency Room and was found to have CHF, pneumonia, asthma, hypothyroidism, dementia, and rule out coronary artery disease and workup showed she had a non-ST elevated CO, hypoxemia, increased troponin, and osteoarthritis, ____ large hiatal hernia, and I was not able to fix because of acute CO. The patient was sent to [facility] for further care where I will be following the patient as well as other specialists with the diagnoses of non-elevated CO, cardiomyopathy, congestive heart failure, asthma, history of COPD, and history of osteoarthritis, history of hypothyroidism, dementia, and a large hiatal hernia. JOB# [id number]
== END 2016-07-24 17:00 | DRG 280 ==
LOC: ER 12:21 → OBSVTOIN 17:10 → TELE 17:10 → ICU 07-18 10:54
PROVIDERS: ADMIT Internal Medicine; ATTEND Internal Medicine
DX: I21.4 Non-ST elevation (NSTEMI) myocardial infarction (principal); J96.01 Acute respiratory failure with hypoxia; J18.9 Pneumonia, unspecified organism; I47.2 Ventricular tachycardia; I11.0 Hypertensive heart disease with heart failure; I50.30 Unspecified diastolic (congestive) heart failure; J44.0 Chronic obstructive pulmonary disease with (acute) lower respiratory infection; F03.90 Unspecified dementia, unspecified severity, without behavioral disturbance, psychotic disturbance, mood disturbance, and anxiety; J44.1 Chronic obstructive pulmonary disease with (acute) exacerbation; M19.90 Unspecified osteoarthritis, unspecified site; E03.9 Hypothyroidism, unspecified; I25.10 Atherosclerotic heart disease of native coronary artery without angina pectoris; E87.6 Hypokalemia; M81.0 Age-related osteoporosis without current pathological fracture; F41.1 Generalized anxiety disorder; K56.41 Fecal impaction; K80.80 Other cholelithiasis without obstruction; Z86.73 Personal history of transient ischemic attack (TIA), and cerebral infarction without residual deficits; Z88.0 Allergy status to penicillin; Z88.6 Allergy status to analgesic agent; Z88.8 Allergy status to other drugs, medicaments and biological substances; Z91.041 Radiographic dye allergy status
CPT/HCPCS: 36415-UA; 36600-90; 71010-TC; 74000-TC; 80048-TC; 80053-TC; 80061-TC; 82140-TC; 82607-90; 82746-90; 82803-TC; 82948-90; 83036-90; 83735-TC; 83880-TC; 84443-TC; 84484-TC; 85007-TC; 85014-TC; 85018-TC; 85025-TC; 85027-TC; 85049-TC; 85610-TC; 85730-TC; 86592-TC; 86850-TC; 86900-TC; 86901-TC; 86922-TC; 87070; 90779; 93005; 94640; 94760; 96379; 97530; J0692; J1644; J2920; J2930; J3480; J7030; J7613; X3401; Z7610